=== PATIENT | female | born 1965 | race Caucasian/White ===

== ENCOUNTER 2017-05-22 18:02 | Inpatient (IN) | payer BC ==
--- NOTE | 2017-05-22 18:32 | Emergency Department Record ---
History of Present Illness - General Chief complaint: Weakness Stated complaint: WEAK/LOSING WEIGHT Time Seen by Provider: 05/22/17 18:30 Source: Patient Mode of Arrival: Ambulatory Limitations: No limitations - History of Present Illness Initial comments: The patient is here due to not feeling well for 2 months. She has been having nausea and a lack of appetite for months and now is having an increase in her loose stools. She has a hx of Crohns Dz and does see a GI specialist who is trying to get her on Stelera but has not been successful. Now she is having and increase in her chronic AP and has had a 50 lb weight loss. She denies any vomiting, fever, or dysuria. MD Complaint: Generalized weakness, Lack of energy Onset/Timin -: Month(s) Consistency: Constant Improves with: None Worsens with: None Context: Other - Related Data Home Medications Medication Instructions Recorded Confirmed Last Taken Budesonide [Uceris] 9 mg PO QAM 05/22/17 05/22/17 05/22/17 Allergies Allergy/AdvReac Type Severity Reaction Status Date / Time No Known Drug Allergies Allergy Verified 05/22/17 18:15 Travel Screening - Travel/Exposure Within Last 30 Days Have you traveled within the last 30 days?: No - Travel/Exposure Within Last Year Have you traveled outside the [place] in the last year?: No - Additonal Travel Details Have you been exposed to anyone with a communicable illness?: No - Travel Symptoms Symptom Screening: None Review of Systems Constitutional: Denies: Chills, Fever Eyes: Denies: Eye discharge ENT: Denies: Congestion Respiratory: Denies: Cough, Dyspnea Past Medical History - SOCIAL HISTORY Smoking Status: Current every day smoker Alcohol Use: None Drug Use: None - RESPIRATORY Hx Respiratory Disorders: No - CARDIOVASCULAR Hx Cardio Disorders: No - NEURO Hx Neuro Disorders: Yes Hx of Migraines: Yes - GI Hx GI Disorders: Yes Hx Abdominal Pain: Yes Hx Crohn's Disease: Yes Hx Nausea/Vomiting: Yes Hx Rectal Bleeding: Yes Hx of Polyps: Yes Comment:: [place].C. - Hx Genitourinary Disorders: No - ENDOCRINE Hx Endocrine Disorders: No - MUSCULOSKELETAL Hx Musculoskeletal Disorders: No - PSYCH Hx Psych Problems: No Comment:: "lots of stress" - HEMATOLOGY/ONCOLOGY Hx Hematology/Oncology Disorders: No Family Medical History Any Significant Family History?: Yes Hx Cancer: Father Hx Heart Disease: Mother Physical Exam - General General Appearance: Alert, Oriented x3, Cooperative, No acute distress - Head Head exam: Atraumatic, Normocephalic, Normal inspection - Eye Eye exam: Normal appearance, PERRL - ENT Throat exam: Normal inspection. negative: Tonsillar erythema, Tonsillar exudate - Neck Neck exam: Normal inspection, Full ROM. negative: Tenderness - Respiratory Respiratory exam: Normal lung sounds bilaterally. negative: Respiratory distress - Cardiovascular Cardiovascular Exam: Regular rate, Normal rhythm, Normal heart sounds - GI/Abdominal GI/Abdominal exam: Soft, Tenderness (There is diffuse tenderness in the lower abdomen bilaterally L>R.). negative: Distended, Rebound, Rigid - Extremities Extremities exam: Normal inspection, Full ROM, Normal capillary refill. negative: Tenderness Course Vital Signs 05/22/17 18:17 Temperature 98.1 F Pulse Rate 91 H Respiratory 20 Rate Blood Pressure 97/65 Pulse Ox 97 - Reevaluation(s) Reevaluation #1: The patient is doing a little better with the IVF's. She is refusing a CT scan of the abdomen but does agree to the plain films. I did discuss the case with Dr. Chandra and he would like the patient on IV Solumedrol and would like some plain xrays if the patient is refusing the CT. I did explain the need for the CT to the patient but she continues to refuse. She understands that she could have a severe infection and need for surgery and that by NOT doing the CT we cannot be held liable for NOT diagnosing those conditions. 05/22/17 20:55 05/22/17 21:01 Reevaluation #2: The patient is doing much better at this time. Her pain is much improved and the abdomen on exam is very soft with only very minimal tenderness in the lower abdomen. I did discuss the issues with the patient and did recommend hospital admission and she accepted. I then did discuss the case with Valeria (PRESCHOOL PROGRAM DIRECTOR) who is monotype keyboard operator for Dr. Joyner and she accepts the patient to the hospital. 05/22/17 21:47 Medical Decision Making - Data Complexity MDM Data: Labs Ordered and/or Reviewed, X-Ray Ordered and/or Reviewed - Lab Data Result diagrams: 05/22/17 18:25 05/22/17 18:25 - Radiology Data Radiology results: Report reviewed -: Radiology Exam Interpreted by Myself (AXR: No acute changes.) Disposition Disposition: Admit Clinical Impression: Crohn's colitis Qualifiers: Digestive disease complication type: without complication Qualified Code(s): K50.10 - Crohn's disease of large intestine without complications Disposition: Still a Patient at [facility] Decision to Admit: Admit from ER Decision to Admit Date: 05/22/17 Decision to Admit Time: 21:49 Accepting Physician: Anya Time Discussed w/Accepting Physician: 21:49 Condition: (2) Stable Forms: Patient Portal Access Time of Disposition: 21:49
[2017-05-22] MEDS ORDERED: ONDANSETRON HCL IV 4 MG/2 ML VIAL IV ONE (18:43)
[2017-05-22] MEDS ORDERED: 0.9 % SODIUM CHLORIDE 1,000 ML BAG IV ONE ×2 (18:43→19:50)
[2017-05-22] MEDS ORDERED: HYDROMORPHONE HCL 1 MG/ML CPJ IVP ONE (18:44)
[2017-05-22 18:52] LABS: HEMATOCRIT 34.9 % (35.0-47.0); HEMOGLOBIN 10.2 gm/dl (11.6-16.0); MEAN CELL VOLUME 70.8 fl (81-97); MEAN CORPUSCULAR HGB CONC 29.2 g/dl (32-36); MEAN PLATELET VOLUME 11.7 fl (7.4-10.4); PLATELET COUNT 420 K/uL (130-400); RED BLOOD COUNT 4.93 M/uL (3.80-5.40); RED CELL DISTRIBUTION WIDTH 16.9 % (11.5-14.5); WHITE BLOOD COUNT W/O DIFF 13.8 K/uL (4.2-12.2)
[2017-05-22 19:03] LABS: ALBUMIN 3.6 gm/dL (3.5-5.0); ALKALINE PHOSPHATASE 90 U/L (38-126); ALT/SGPT 17 U/L (9-52); ANION GAP 9.1 (7-16); AST/SGOT 12 U/L (14-36); BILIRUBIN,TOTAL 0.41 mg/dL (0.2-1.3); BLOOD UREA NITROGEN 8 mg/dL (7-17); CARBON DIOXIDE 29.9 mmol/L (22-30); CREATININE 0.7 mg/dL (0.52-1.04); EST GLOMERULAR FILTRATION RATE > 60 ml/min; GLUCOSE,RANDOM 107 mg/dL (70-110); LIPASE 29 U/L (23-300); TOTAL PROTEIN 7.6 gm/dL (6.3-8.2)
[2017-05-22 19:09] LABS: MEAN CORPUSCULAR HEMOGLOBIN 20.6 pg (27-33)
[2017-05-22 19:13] LABS: HYPOCHROMIA 3+; MICROCYTOSIS 1+
[2017-05-22] MEDS ORDERED: POTASSIUM CHLORIDE 20 MEQ TABLET PO ONE (19:35)
[2017-05-22 20:23] LABS: URINE APPEARANCE CLEAR; URINE BILIRUBIN SMALL (NEGATIVE); URINE BLOOD NEGATIVE (NEGATIVE); URINE COLOR YELLOW; URINE GLUCOSE (UA) NEGATIVE (NEGATIVE); URINE KETONE 15 mg/dL (NEGATIVE); URINE LEUKOCYTE ESTERASE NEGATIVE (NEGATIVE); URINE NITRITE NEGATIVE (NEGATIVE); URINE PROTEIN TRACE (NEGATIVE)
[2017-05-22] MEDS ORDERED: METHYLPREDNISOLONE PF 125MG/VIAL IVP ONE (20:49)
[2017-05-22] MEDS ORDERED: POTASSIUM CHLORIDE/D5-0.9%NACL 20 MEQ/1,000 ML BAG IV ONE (23:05)
[2017-05-22] MEDS: HYDROMORPHONE HCL 1 MG/ML CPJ IVP PRN (23:18)
[2017-05-22] MEDS: ONDANSETRON HCL IV 4 MG/2 ML VIAL IVP PRN (23:34)
[2017-05-23] MEDS: HYDROMORPHONE HCL 1 MG/ML CPJ IVP PRN ×5 (03:51→20:32)
[2017-05-23] MEDS: ONDANSETRON HCL IV 4 MG/2 ML VIAL IVP PRN ×3 (03:56→12:10)
[2017-05-23 06:21] LABS: BASO % 0.1 % (0-6); HEMATOCRIT 27.8 % (35.0-47.0); LYMPH % 8.3 % (16-45); MEAN CELL VOLUME 72.2 fl (81-97); MEAN CORPUSCULAR HGB CONC 28.8 g/dl (32-36); MEAN PLATELET VOLUME 11.4 fl (7.4-10.4); PLATELET COUNT 304 K/uL (130-400); RED BLOOD COUNT 3.85 M/uL (3.80-5.40); RED CELL DISTRIBUTION WIDTH 16.6 % (11.5-14.5); WHITE BLOOD COUNT W/O DIFF 7.8 K/uL (4.2-12.2)
[2017-05-23 06:30] LABS: ANION GAP 5.7 (7-16); BLOOD UREA NITROGEN 8 mg/dL (7-17); CARBON DIOXIDE 25.3 mmol/L (22-30); CREATININE 0.5 mg/dL (0.52-1.04); EST GLOMERULAR FILTRATION RATE > 60 ml/min; GLUCOSE,RANDOM 156 mg/dL (70-110)
[2017-05-23 07:04] LABS: MEAN CORPUSCULAR HEMOGLOBIN 20.7 pg (27-33)
[2017-05-23 07:07] LABS: ANISOCYTOSIS 1+; HYPOCHROMIA 3+; MICROCYTOSIS 2+; PLATELET ESTIMATE NORMAL (NORMAL)
[2017-05-23] MEDS: METHYLPREDNISOLONE PF 125MG/VIAL IVP SCH (11:01)
[2017-05-23] MEDS: BUDESONIDE 9 MG PO SCH (11:02)
[2017-05-23] MEDS: ENOXAPARIN 40 MG/0.4 ML SYR SQ SCH (11:02)
--- NOTE | 2017-05-23 11:33 | RADIOLOGY REPORT ---
EXAM: ABDOMEN, ACUTE SERIES HISTORY: ABDOMINAL PAIN. TECHNIQUE: Single PA view of the chest. Supine and upright views of the abdomen were performed. FINDINGS: Heart size is normal. Lung ash are clear. Nonspecific bowel gas pattern. There is increased stool in the descending colon. No evidence of free air. There is degenerative change of the lumbar spine. IMPRESSION: 1. NO ACUTE PULMONARY DISEASE PROCESS. 2. NONOBSTRUCTIVE BOWEL GAS PATTERN. NO EVIDENCE OF FREE AIR. JOB NUMBER: [id number] MTDD
[2017-05-23] MEDS ORDERED: POTASSIUM CHLORIDE/D5-0.9%NACL 20 MEQ/1,000 ML BAG IV ONE (16:32)
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
[2017-05-23] MEDS: SENNOSIDES/DOCUSATE SODIUM UD CAPSULE PO PRN (20:33)
[2017-05-24] MEDS: HYDROMORPHONE HCL 1 MG/ML CPJ IVP PRN ×7 (00:22→21:00)
[2017-05-24] MEDS: 0.9 % SODIUM CHLORIDE 1000ML 1,000 ML IV PRN ×2 (03:15→11:20)
[2017-05-24] MEDS: ONDANSETRON HCL IV 4 MG/2 ML VIAL IVP PRN (04:40)
[2017-05-24 06:24] LABS: BASO % 0.1 % (0-6); EOS % 0.7 % (0-6); GRAN % 65.4 % (47-80); HEMATOCRIT 28.2 % (35.0-47.0); HEMOGLOBIN 8.1 gm/dl (11.6-16.0); LYMPH % 23.2 % (16-45); MEAN CELL VOLUME 73.2 fl (81-97); MEAN CORPUSCULAR HGB CONC 28.7 g/dl (32-36); MEAN PLATELET VOLUME 11.4 fl (7.4-10.4); MONO % 10.6 % (0-9); PLATELET COUNT 340 K/uL (130-400); RED BLOOD COUNT 3.85 M/uL (3.80-5.40); RED CELL DISTRIBUTION WIDTH 16.6 % (11.5-14.5); WHITE BLOOD COUNT W/O DIFF 7.2 K/uL (4.2-12.2)
[2017-05-24 06:38] LABS: ALB/GLOB RATIO 0.9 (1.1-1.8); ALBUMIN 2.8 gm/dL (3.5-5.0); ALKALINE PHOSPHATASE 64 U/L (38-126); ALT/SGPT 19 U/L (9-52); ANION GAP 5.7 (7-16); AST/SGOT 8 U/L (14-36); BILIRUBIN,TOTAL 0.25 mg/dL (0.2-1.3); BLOOD UREA NITROGEN 6 mg/dL (7-17); CARBON DIOXIDE 29.3 mmol/L (22-30); CREATININE 0.7 mg/dL (0.52-1.04); EST GLOMERULAR FILTRATION RATE > 60 ml/min; GLUCOSE,RANDOM 88 mg/dL (70-110)
[2017-05-24] MEDS: BUDESONIDE 9 MG PO SCH ×2 (08:15→10:37)
--- NOTE | 2017-05-24 10:41 | Physician Progress Note ---
Subjective - Date Date of Physician Progress Note: 05/24/17 - Subjective Subjective Comment: Reports pain has somewhat improved with moving bowels but has anticipation concerns every time she heats. No further nausea, tolerated clear liquids this am. Is passing gas. Had small pebble-like BM last night. Continues to report anxiety regarding eating. Has an appetite and would eat a full meal but knows that as soon as she feels the urge to move bowels she has significant LLQ abdominal pain, stabbing in nature, hurts to bear down to move bowels. Is usually constipated, does have hx hemorrhoids. Yesterday's BM was hard, needed to bear down to pass stool, did have some blood streaked in stool. Pain was slightly better with that bowel movement but reports asks for pain medication prior to attempting to move bowels to treat impending pain Objective - Vital Signs Vital Signs: Vital Signs - Last 24 Hrs Temp Pulse Resp BP BP Pulse Ox 05/24/17 09:28 98.6 F 100/76 05/24/17 08:00 98.6 F 57 L 16 108/58 97 05/24/17 04:35 98.6 F 56 L 14 100/76 98 05/24/17 00:00 98.6 F 58 L 16 102/73 96 05/23/17 20:02 98.2 F 53 L 12 109/67 97 05/23/17 17:00 97.8 F 64 12 96/58 96 05/23/17 13:00 98.4 F 53 L 12 91/50 95 - General General Appearance: Alert, Oriented x3, Cooperative, Other (cachectic) Limitations: No limitations - Head Head exam: Atraumatic, Normocephalic, Normal inspection - Eye Eye exam: Normal appearance, PERRL - ENT ENT exam: Normal exam Throat exam: Normal inspection. negative: Tonsillar erythema, Tonsillar exudate - Neck Neck exam: Normal inspection, Full ROM. negative: Tenderness - Respiratory Respiratory exam: Normal lung sounds bilaterally. negative: Respiratory distress - Cardiovascular Cardiovascular Exam: Regular rate, Normal rhythm, Normal heart sounds Peripheral Pulses: 2+: Dorsalis Pedis (R), Dorsalis Pedis (L) - GI/Abdominal GI/Abdominal exam: Soft, Normal bowel sounds (decreased LLQ), Distended (mild), Tenderness (LLQ ). negative: Diminished bowel sounds, Rebound, Rigid - Rectal Rectal exam: Deferred - exam: Deferred - Extremities Extremities exam: Normal inspection, Full ROM, Normal capillary refill. negative: Tenderness - Back Back exam: Reports: Normal inspection, Full ROM. Denies: Muscle spasm, Rash noted, Tenderness - Neurological Neurological exam: Alert, Normal gait, Oriented X3, Reflexes normal - Psychiatric Psychiatric exam: Normal affect, Normal mood - Skin Skin exam: Dry, Intact, Normal color, Warm Assessment and Plan - Inpatient Certification Inpatient Certification: Admit to inpatient care: Based on my medical assessment, after consideration of patient's risk factors (age, co-morbidities and patient presenting symptoms and acuity), I expect that this patient will remain in the hospital greater than or equal to two midnights and that the services needed warrant inpatient care because: Patient Risk Factors: [anemic, significant weight loss in 2 months, abdominal pain, malnourishment] Estimated length of stay: [48-72 hours] The patient may reasonably be expected to be discharged or transferred to a hospital within 96 hours after admission to [facility]. Services needed: [IV hydration, pain management, IV steroids] Post hospital care (if known): [] I certify that my determination is in accordance with my understanding of Medicare requirements for reasonable and necessary inpatient services. 05/24/17 10:42 05/24/17 10:53 - Assessment and Plan (1) Crohn's colitis Current Visit: Yes Status: Acute Qualifiers: Digestive disease complication type: without complication Qualified Code(s) : K50.10 - Crohn's disease of large intestine without complications Base Code: K50.10 - CROHN'S DISEASE OF LARGE INTESTINE WITHOUT COMPLICATIONS Comment: 05/24/17- 51 y/o female with hx Crohn's admitted after 2 month history of abdominal pain, nausea, loose stools, poor appetite, 50lb weigh loss. ESR/ CRP significantly elevated in ED, WBC normal, Hgb 8.0. Denies blood in stool or emesis. Refused CT abdomen/pelvis. Acute abdominal series showed non- obstructive gas pattern. Well known to Dr. Chandra. Recently started on Uceris in February 2017, has been trying to get Stelara covered by insurance but unable. - pain with BM slightly improved, had small hard pebble-like movement yesterday - IV hydration - clear liquid diet, is tolerating - pain management with Dilaudid, pain improved - ZOfran for nausea, nausea improved - IV Solumedrol 40mg QD - Hgb 8.1 this am - Dietary consult - Protein and albumin low, previos normal readings likely due to hemoconcentration - will get magnesium and phosphorus today, concern with refeeding syndrome - may benefit from short term TPN if her intake does not improve - Dr Lashonda Arevalo is primary eradicator, she has been contacted today with message left for her to return call for further outpatient recommendations and concern with malnutrition (2) Malnutrition Current Visit: Yes Status: Acute Base Code: E46 - UNSPECIFIED PROTEIN- CALORIE MALNUTRITION Comment: 05/24/17- 51 y/o female with hx Crohn's admitted after 2 month history of abdominal pain, nausea, loose stools, poor appetite, 50lb weigh loss. ESR/CRP significantly elevated in ED, WBC normal, Hgb 8.0. Denies blood in stool or emesis. Refused CT abdomen/pelvis. Acute abdominal series showed non-obstructive gas pattern. Well known to Dr. Chandra. Recently started on Uceris in February 2017, has been trying to get Stelara covered by insurance but unable. - pain with BM slightly improved, had small hard pebble-like movement yesterday - IV hydration - clear liquid diet, is tolerating - pain management with Dilaudid, pain improved - ZOfran for nausea, nausea improved - IV Solumedrol 40mg QD - Hgb 8.1 this am - Dietary consult - Protein and albumin low, previos normal readings likely due to hemoconcentration - will get magnesium and phosphorus today, concern with refeeding syndrome - may benefit from short term TPN if her intake does not improve - Dr Lashonda Arevalo is primary eradicator, she has been contacted today with message left for her to return call for further outpatient recommendations and concern with malnutrition (3) DVT prophylaxis Current Visit: Yes Status: Acute Base Code: [id number] - Comment: 05/24/17- Lovenox 40mg QD, nursing to encourage frequent ambulation (4) Full code status Current Visit: Yes Status: Acute Base Code: Z78.9 - OTHER SPECIFIED HEALTH STATUS Comment: 05/24/17- will remain full code during this hospitalization Results - Labs Result Diagrams: 05/24/17 06:15 05/24/17 06:15 Labs Last 24 Hours: Laboratory Results - last 24 hr 05/24/17 05/24/17 05/24/17 06:15 06:15 06:15 WBC 7.2 RBC 3.85 Hgb 8.1 L Hct 28.2 L MCV 73.2 L MCH 21.0 L MCHC 28.7 L RDW 16.6 H Plt Count 340 MPV 11.4 H Gran % 65.4 Lymphocytes % 23.2 Monocytes % 10.6 H Eosinophils % 0.7 Basophils % 0.1 Sodium 142 Potassium 3.9 Chloride 107 Carbon Dioxide 29.3 Anion Gap 5.7 L BUN 6 L Creatinine 0.7 Estimated GFR > 60 Random Glucose 88 Calcium 8.5 Phosphorus 2.6 Magnesium Total Bilirubin 0.25 AST 8 L ALT 19 Alkaline Phosphatase 64 Total Protein 6.0 L Albumin 2.8 L Globulin 3.2 Albumin/Globulin Ratio 0.9 L Urine Magnesium 05/24/17 05/24/17 06:15 09:25 WBC RBC Hgb Hct MCV MCH MCHC RDW Plt Count MPV Gran % Lymphocytes % Monocytes % Eosinophils % Basophils % Sodium Potassium Chloride Carbon Dioxide Anion Gap BUN Creatinine Estimated GFR Random Glucose Calcium Phosphorus Magnesium 2.0 Total Bilirubin AST ALT Alkaline Phosphatase Total Protein Albumin Globulin Albumin/Globulin Ratio Urine Magnesium Cancelled DVT/PE Assessment - Risk for VTE Risk for VTE: No Risk Level: Low Risk Assessment Date: 05/23/17 Risk Assessment Time: 09:00 VTE Orders Placed or Will Be Placed: Yes - Active Medicaitons Current Medications: Current Medications Enoxaparin Sodium (Lovenox) 40 mg SQ DAILY [facility] Last Admin: 05/23/17 11:02 Dose: 40 mg Hydromorphone HCl (Dilaudid) 1 mg IVP Q4H PRN PRN Reason: Analgesia Last Admin: 05/24/17 08:14 Dose: 1 mg Sodium Chloride () 1,000 mls @ 125 mls/hr IV .Q8H PRN PRN Reason: LARGE VOLUME IV Last Admin: 05/24/17 03:15 Dose: 125 mls/hr Methylprednisolone Sodium Succinate (Solu-Medrol) 40 mg IVP DAILY [facility] Last Admin: 05/23/17 11:01 Dose: 40 mg Ondansetron HCl (Zofran) 4 mg IVP Q4H PRN PRN Reason: NAUSEA Last Admin: 05/24/17 04:40 Dose: 4 mg Patient Own Med: Budesonide (Uceris) 9 Mg 1 each PO DAILY [facility] Last Admin: 05/24/17 08:15 Dose: 1 each Senna/Docusate Sodium (Senna Plus) 2 each PO BID PRN PRN Reason: CONSTIPATION Last Admin: 05/23/17 20:33 Dose: 1 each AMI Plan - Labs Result Diagrams: 05/24/17 06:15 05/24/17 06:15
[2017-05-24] MEDS: METHYLPREDNISOLONE PF 125MG/VIAL IVP SCH (10:52)
[2017-05-24] MEDS: ENOXAPARIN 40 MG/0.4 ML SYR SQ SCH (10:55)
[2017-05-24] MEDS: SENNOSIDES/DOCUSATE SODIUM UD CAPSULE PO PRN (11:04)
[2017-05-25] MEDS: HYDROMORPHONE HCL 1 MG/ML CPJ IVP PRN ×6 (01:01→23:09)
[2017-05-25 06:16] LABS: HEMATOCRIT 27.9 % (35.0-47.0); MEAN CELL VOLUME 72.7 fl (81-97); MEAN CORPUSCULAR HEMOGLOBIN 20.8 pg (27-33); MEAN CORPUSCULAR HGB CONC 28.7 g/dl (32-36); MEAN PLATELET VOLUME 11.8 fl (7.4-10.4); PLATELET COUNT 317 K/uL (130-400); RED BLOOD COUNT 3.84 M/uL (3.80-5.40); RED CELL DISTRIBUTION WIDTH 16.7 % (11.5-14.5)
[2017-05-25 06:31] LABS: ALB/GLOB RATIO 0.9 (1.1-1.8); ALBUMIN 2.6 gm/dL (3.5-5.0); ALKALINE PHOSPHATASE 66 U/L (38-126); ALT/SGPT 21 U/L (9-52); ANION GAP 4.1 (7-16); AST/SGOT 8 U/L (14-36); BILIRUBIN,TOTAL 0.25 mg/dL (0.2-1.3); BLOOD UREA NITROGEN 4 mg/dL (7-17); CARBON DIOXIDE 28.9 mmol/L (22-30); CREATININE 0.6 mg/dL (0.52-1.04); EST GLOMERULAR FILTRATION RATE > 60 ml/min; GLUCOSE,RANDOM 93 mg/dL (70-110); TOTAL PROTEIN 5.6 gm/dL (6.3-8.2)
[2017-05-25 06:43] LABS: HYPOCHROMIA 1+; MICROCYTOSIS 2+
--- NOTE | 2017-05-25 07:42 | Physician Progress Note ---
Subjective - Date Date of Physician Progress Note: 05/25/17 - Subjective Subjective Comment: 05/25/17- Patient states she is feeling a little better today than when she came in. Says overall her abdominal pain has decreased. [place] like before it was painful to even touch her abdomen and couldn't bear down at all with BM due to the pain. She says today she has been able to valsalva and has passed some fecal material. She says it isn't all formed stool but has had a few smaller formed BM along with mucus but no obvious blood. She denies nausea/vomiting and actually feels very hungry. Still hesitant to eat due to anticipated pain in the LLQ when she has a BM. Denies fever, chills, fatigue, shortness of breath. Objective - Vital Signs Vital Signs: Vital Signs - Last 24 Hrs Temp Pulse Resp BP BP Pulse Ox 05/25/17 04:52 98.2 F 64 12 115/71 93 L 05/24/17 23:27 98.3 F 65 12 116/75 96 05/24/17 21:12 98.4 F 73 16 127/76 94 L 05/24/17 21:00 16 05/24/17 16:00 98.2 F 59 L 16 104/67 98 05/24/17 11:43 97.9 F 67 18 103/68 93 L 05/24/17 09:28 98.6 F 100/76 05/24/17 09:00 67 18 05/24/17 08:00 98.6 F 57 L 16 108/58 97 - General General Appearance: Alert, Oriented x3, Cooperative, Other (cachectic) Limitations: No limitations - Head Head exam: Atraumatic, Normocephalic, Normal inspection - Eye Eye exam: Normal appearance, PERRL - ENT ENT exam: Normal exam Throat exam: Normal inspection. negative: Tonsillar erythema, Tonsillar exudate - Neck Neck exam: Normal inspection, Full ROM. negative: Tenderness - Respiratory Respiratory exam: Normal lung sounds bilaterally. negative: Respiratory distress - Cardiovascular Cardiovascular Exam: Regular rate, Normal rhythm, Normal heart sounds Peripheral Pulses: 2+: Dorsalis Pedis (R), Dorsalis Pedis (L) - GI/Abdominal GI/Abdominal exam: Soft, Normal bowel sounds (decreased LLQ), Distended (mild), Tenderness (LLQ ). negative: Diminished bowel sounds, Rebound, Rigid - Rectal Rectal exam: Deferred - exam: Deferred - Extremities Extremities exam: Normal inspection, Full ROM, Normal capillary refill. negative: Tenderness - Back Back exam: Reports: Normal inspection, Full ROM. Denies: Muscle spasm, Rash noted, Tenderness - Neurological Neurological exam: Alert, Normal gait, Oriented X3, Reflexes normal - Psychiatric Psychiatric exam: Normal affect, Normal mood - Skin Skin exam: Dry, Intact, Normal color, Warm Assessment and Plan - Assessment and Plan (1) Crohn's colitis Current Visit: Yes Status: Acute Qualifiers: Digestive disease complication type: without complication Qualified Code(s) : K50.10 - Crohn's disease of large intestine without complications Base Code: K50.10 - CROHN'S DISEASE OF LARGE INTESTINE WITHOUT COMPLICATIONS Comment: 05/25/17- mild clinical improvement with decreased abdominal pain/ tenderness. CRP down from 22 at admission to 7.3 today following 3 days of solumedrol 40mg IV. HGB stable at 8.0. Katarina had spoken with Dr. Arevalo, patient' s primary GI doctor yesterday in regards to plan. She had recommended starting remicaid dosed at 10mg/kg due to patient's advanced disease. She recommends continued monitoring of patient in the hospital until next week when she receives a second dose of remicaid at 10mg/kg. -start remicaid infusion today. claritin and tylenol ordered prn for urticaria and fever - continue IV hydration -continue clear liquid diet. dietary consulted - pain management with Dilaudid - ZOfran for nausea - IV Solumedrol 40mg QD -repeat labs qam and continue to monitor lytes, crp, and albumin (2) DVT prophylaxis Current Visit: Yes Status: Acute Base Code: [id number] - Comment: 05/25/17- Lovenox 40mg QD, nursing to encourage frequent ambulation (3) Full code status Current Visit: Yes Status: Acute Base Code: Z78.9 - OTHER SPECIFIED HEALTH STATUS Comment: 05/25/17- will remain full code during this hospitalization Results - Labs Result Diagrams: 05/25/17 06:05 05/25/17 06:05 Labs Last 24 Hours: Laboratory Results - last 24 hr 05/24/17 05/24/17 05/24/17 06:15 06:15 09:25 WBC RBC Hgb Hct MCV MCH MCHC RDW Plt Count MPV Neutrophils % Eosinophils % Basophils % Lymphocytes Monocytes Hypochromasia Microcytosis Sodium Potassium Chloride Carbon Dioxide Anion Gap BUN Creatinine Estimated GFR Random Glucose Calcium Phosphorus 2.6 Magnesium 2.0 Total Bilirubin AST ALT Alkaline Phosphatase C-Reactive Protein Total Protein Albumin Globulin Albumin/Globulin Ratio Urine Magnesium Cancelled 05/25/17 05/25/17 05/25/17 06:05 06:05 06:05 WBC 5.0 RBC 3.84 Hgb 8.0 L Hct 27.9 L MCV 72.7 L MCH 20.8 L MCHC 28.7 L RDW 16.7 H Plt Count 317 MPV 11.8 H Neutrophils % 56.0 Eosinophils % Not Reportable Basophils % Not Reportable Lymphocytes 28.0 Monocytes 16.0 H Hypochromasia 1+ Microcytosis 2+ Sodium 142 Potassium 3.9 Chloride 109 H Carbon Dioxide 28.9 Anion Gap 4.1 L BUN 4 L Creatinine 0.6 Estimated GFR > 60 Random Glucose 93 Calcium 8.3 L Phosphorus Magnesium Total Bilirubin 0.25 AST 8 L ALT 21 Alkaline Phosphatase 66 C-Reactive Protein 7.3 H Total Protein 5.6 L Albumin 2.6 L Globulin 3.0 Albumin/Globulin Ratio 0.9 L Urine Magnesium DVT/PE Assessment - Risk for VTE Risk for VTE: No Risk Level: Low Risk Assessment Date: 05/23/17 Risk Assessment Time: 09:00 VTE Orders Placed or Will Be Placed: Yes - Active Medicaitons Current Medications: Current Medications Enoxaparin Sodium (Lovenox) 40 mg SQ DAILY [facility]S [facility] BEDS AT [facility] Last Admin: 05/24/17 10:55 Dose: 40 mg Hydromorphone HCl (Dilaudid) 1 mg IVP Q4H PRN PRN Reason: Analgesia Last Admin: 05/25/17 04:59 Dose: 1 mg Sodium Chloride () 1,000 mls @ 125 mls/hr IV .Q8H PRN PRN Reason: LARGE VOLUME IV Last Infusion: 05/24/17 19:30 Dose: Infused Methylprednisolone Sodium Succinate (Solu-Medrol) 40 mg IVP DAILY [facility]S [facility]CLUDE 234 BEDS AT [facility] Last Admin: 05/24/17 10:52 Dose: 40 mg Ondansetron HCl (Zofran) 4 mg IVP Q4H PRN PRN Reason: NAUSEA Last Admin: 05/24/17 04:40 Dose: 4 mg Patient Own Med: Budesonide (Uceris) 9 Mg 1 each PO DAILY [facility] Last Admin: 05/24/17 10:37 Dose: Not Given Senna/Docusate Sodium (Senna Plus) 2 each PO BID PRN PRN Reason: CONSTIPATION Last Admin: 05/24/17 11:04 Dose: 2 each AMI Plan - Labs Result Diagrams: 05/25/17 06:05 05/25/17 06:05
[2017-05-25] MEDS ORDERED: SODIUM CHLORIDE 0.9% IV ONE (10:30)
[2017-05-25] MEDS ORDERED: INFLIXIMAB IV ONE (10:30)
[2017-05-25] MEDS: METHYLPREDNISOLONE PF 125MG/VIAL IVP SCH (11:21)
[2017-05-25] MEDS: LORATADINE 10 MG TABLET PO PRN (11:21)
[2017-05-25] MEDS: ENOXAPARIN 40 MG/0.4 ML SYR SQ SCH (11:22)
[2017-05-25] MEDS: BUDESONIDE 9 MG PO SCH (11:22)
[2017-05-26] MEDS: 0.9 % SODIUM CHLORIDE 1000ML 1,000 ML IV PRN ×2 (00:34→09:51)
[2017-05-26] MEDS: ACETAMINOPHEN 500 MG TABLET PO PRN (00:38)
[2017-05-26] MEDS: HYDROMORPHONE HCL 1 MG/ML CPJ IVP PRN ×6 (03:10→23:49)
[2017-05-26 06:41] LABS: HEMATOCRIT 30.4 % (35.0-47.0); HEMOGLOBIN 8.7 gm/dl (11.6-16.0); MEAN CELL VOLUME 72.6 fl (81-97); MEAN CORPUSCULAR HGB CONC 28.6 g/dl (32-36); MEAN PLATELET VOLUME 12.2 fl (7.4-10.4); PLATELET COUNT 342 K/uL (130-400); RED BLOOD COUNT 4.19 M/uL (3.80-5.40); WHITE BLOOD COUNT W/O DIFF 8.5 K/uL (4.2-12.2)
[2017-05-26 06:52] LABS: MEAN CORPUSCULAR HEMOGLOBIN 20.7 pg (27-33)
[2017-05-26 06:59] LABS: ALB/GLOB RATIO 0.9 (1.1-1.8); ALKALINE PHOSPHATASE 77 U/L (38-126); ALT/SGPT 13 U/L (9-52); ANION GAP 5.3 (7-16); AST/SGOT 10 U/L (14-36); BILIRUBIN,TOTAL 0.23 mg/dL (0.2-1.3); BLOOD UREA NITROGEN 4 mg/dL (7-17); CARBON DIOXIDE 28.7 mmol/L (22-30); CREATININE 0.6 mg/dL (0.52-1.04); EST GLOMERULAR FILTRATION RATE > 60 ml/min; GLUCOSE,RANDOM 99 mg/dL (70-110); TOTAL PROTEIN 6.3 gm/dL (6.3-8.2)
[2017-05-26 07:17] LABS: HYPOCHROMIA 1+; MICROCYTOSIS 2+
--- NOTE | 2017-05-26 09:35 | Physician Progress Note ---
Subjective - Date Date of Physician Progress Note: 05/26/17 - Subjective Subjective Comment: 05/26/17- Patient states she is feeling a little better today. tolerated her first remicaid infusion well. She has had a good appetite today and not having nearly as much indigestion after eating. Has been able to tolerate about 25-50% of her meals and boost supplements which is an improvement. says her LLQ is kiln furniture saw tender but much improved from admission. Objective - Vital Signs Vital Signs: Vital Signs - Last 24 Hrs Temp Pulse Resp BP Pulse Ox 05/26/17 08:34 60 15 05/26/17 06:00 97.7 F 56 L 12 137/87 100 05/26/17 03:00 98.3 F 65 14 130/90 95 05/25/17 23:07 98.4 F 61 12 126/89 97 05/25/17 19:45 98.6 F 66 12 123/74 95 05/25/17 16:00 98.2 F 64 14 103/69 95 05/25/17 12:00 98.3 F 65 14 101/68 95 - General General Appearance: Alert, Oriented x3, Cooperative, Other (cachectic) Limitations: No limitations - Head Head exam: Atraumatic, Normocephalic, Normal inspection - Eye Eye exam: Normal appearance, PERRL - ENT ENT exam: Normal exam Throat exam: Normal inspection. negative: Tonsillar erythema, Tonsillar exudate - Neck Neck exam: Normal inspection, Full ROM. negative: Tenderness - Respiratory Respiratory exam: Normal lung sounds bilaterally. negative: Respiratory distress - Cardiovascular Cardiovascular Exam: Regular rate, Normal rhythm, Normal heart sounds Peripheral Pulses: 2+: Dorsalis Pedis (R), Dorsalis Pedis (L) - GI/Abdominal GI/Abdominal exam: Soft, Normal bowel sounds (decreased LLQ), Tenderness (LLQ ) . negative: Diminished bowel sounds, Distended, Rebound, Rigid - Rectal Rectal exam: Deferred - exam: Deferred - Extremities Extremities exam: Normal inspection, Full ROM, Normal capillary refill. negative: Tenderness - Back Back exam: Reports: Normal inspection, Full ROM. Denies: Muscle spasm, Rash noted, Tenderness - Neurological Neurological exam: Alert, Normal gait, Oriented X3, Reflexes normal - Psychiatric Psychiatric exam: Normal affect, Normal mood - Skin Skin exam: Dry, Intact, Normal color, Warm Assessment and Plan - Assessment and Plan (1) Crohn's colitis Current Visit: Yes Status: Acute Qualifiers: Digestive disease complication type: without complication Qualified Code(s) : K50.10 - Crohn's disease of large intestine without complications Base Code: K50.10 - CROHN'S DISEASE OF LARGE INTESTINE WITHOUT COMPLICATIONS Comment: 05/26/17- continued improvement with decreased abdominal pain/ tenderness. CRP down from 22 at admission to 7.0 today. HGB improved to 8.5. Patient tolerated first remicaid infusion well. Left message for Dr. Up to update her on patient's status. -repeat infusion next wednesday -continue clear liquid diet and advance as tolerating. dietary consulted - pain management with Dilaudid - ZOfran for nausea - continue IV Solumedrol 40mg QD -repeat labs qam and continue to monitor lytes, crp, and albumin (2) DVT prophylaxis Current Visit: Yes Status: Acute Base Code: [id number] - Comment: 05/26/17- Lovenox 40mg QD, nursing to encourage frequent ambulation (3) Full code status Current Visit: Yes Status: Acute Base Code: Z78.9 - OTHER SPECIFIED HEALTH STATUS Comment: 05/26/17- will remain full code during this hospitalization Results - Labs Result Diagrams: 05/26/17 06:18 05/26/17 06:18 Labs Last 24 Hours: Laboratory Results - last 24 hr 05/26/17 05/26/17 05/26/17 06:18 06:18 06:18 WBC 8.5 RBC 4.19 Hgb 8.7 L Hct 30.4 L MCV 72.6 L MCH 20.7 L MCHC 28.6 L RDW 17.0 H Plt Count 342 MPV 12.2 H Neutrophils % 61.0 Eosinophils % Not Reportable Basophils % Not Reportable Lymphocytes 30.0 Monocytes 9.0 Hypochromasia 1+ Microcytosis 2+ Sodium 142 Potassium 3.1 L Chloride 108 H Carbon Dioxide 28.7 Anion Gap 5.3 L BUN 4 L Creatinine 0.6 Estimated GFR > 60 Random Glucose 99 Calcium 8.4 L Total Bilirubin 0.23 AST 10 L ALT 13 Alkaline Phosphatase 77 C-Reactive Protein 7.0 H Total Protein 6.3 Albumin 3.0 L Globulin 3.3 Albumin/Globulin Ratio 0.9 L DVT/PE Assessment - Risk for VTE Risk for VTE: No Risk Level: Low Risk Assessment Date: 05/23/17 Risk Assessment Time: 09:00 VTE Orders Placed or Will Be Placed: Yes - Active Medicaitons Current Medications: Current Medications Acetaminophen (Tylenol 500mg Tab) 1,000 mg PO Q6H PRN PRN Reason: FEVER Last Admin: 05/26/17 00:38 Dose: 500 mg Enoxaparin Sodium (Lovenox) 40 mg SQ DAILY [facility] Last Admin: 05/25/17 11:22 Dose: 40 mg Hydromorphone HCl (Dilaudid) 1 mg IVP Q4H PRN PRN Reason: Analgesia Last Admin: 05/26/17 07:05 Dose: 1 mg Sodium Chloride () 1,000 mls @ 125 mls/hr IV .Q8H PRN PRN Reason: LARGE VOLUME IV Last Admin: 05/26/17 00:34 Dose: 125 mls/hr Infliximab 550 mg/ Sodium (Chloride) 250 mls @ 10 mls/hr IV NOW ONE Stop: 05/26/17 11:29 Last Admin: 05/25/17 11:23 Dose: 10 mls/hr Loratadine (Claritin) 10 mg PO DAILY PRN PRN Reason: URTICARIA Last Admin: 05/25/17 11:21 Dose: 10 mg Methylprednisolone Sodium Succinate (Solu-Medrol) 40 mg IVP DAILY [facility] Last Admin: 05/25/17 11:21 Dose: 40 mg Ondansetron HCl (Zofran) 4 mg IVP Q4H PRN PRN Reason: NAUSEA Last Admin: 05/24/17 04:40 Dose: 4 mg Patient Own Med: Budesonide (Uceris) 9 Mg 1 each PO DAILY [facility] Last Admin: 05/25/17 11:22 Dose: 1 each Senna/Docusate Sodium (Senna Plus) 2 each PO BID PRN PRN Reason: CONSTIPATION Last Admin: 05/24/17 11:04 Dose: 2 each AMI Plan - Labs Result Diagrams: 05/26/17 06:18 05/26/17 06:18
[2017-05-26] MEDS: METHYLPREDNISOLONE PF 125MG/VIAL IVP SCH (09:52)
[2017-05-26] MEDS: ENOXAPARIN 40 MG/0.4 ML SYR SQ SCH (09:54)
[2017-05-26] MEDS: BUDESONIDE 9 MG PO SCH (09:54)
[2017-05-26] MEDS: SENNOSIDES/DOCUSATE SODIUM UD CAPSULE PO PRN ×2 (11:12→23:48)
[2017-05-26] MEDS ORDERED: POTASSIUM CHLORIDE 20 MEQ TABLET PO ONE (12:12)
[2017-05-27] MEDS: HYDROMORPHONE HCL 1 MG/ML CPJ IVP PRN ×5 (03:57→22:35)
--- NOTE | 2017-05-27 06:40 | Physician Progress Note ---
Subjective - Date Date of Physician Progress Note: 05/27/17 - Subjective Subjective Comment: 05/27/17- Patient states she continues to feel a little better today. She says her stool is becoming slightly more formed and she says her pain with elimination is stable. She says her abdominal pain continues to improve as does her appetite. She was able to tolerate some of the boost supplement as well. Objective - Vital Signs Vital Signs: Vital Signs - Last 24 Hrs Temp Pulse Resp BP BP Pulse Ox 05/27/17 06:04 97.7 F 49 L 16 138/81 94 L 05/27/17 02:05 98.1 F 52 L 16 134/79 95 05/26/17 22:54 98.5 F 57 L 16 139/86 95 05/26/17 21:00 75 16 05/26/17 18:54 98.9 F 68 16 138/71 98 05/26/17 15:17 98.0 F 73 16 128/75 98 05/26/17 11:03 97.8 F 120/79 05/26/17 10:02 97.8 F 59 L 14 120/79 96 05/26/17 08:34 60 15 - General General Appearance: Alert, Oriented x3, Cooperative, Other (cachectic) Limitations: No limitations - Head Head exam: Atraumatic, Normocephalic, Normal inspection - Eye Eye exam: Normal appearance, PERRL - ENT ENT exam: Normal exam Throat exam: Normal inspection. negative: Tonsillar erythema, Tonsillar exudate - Neck Neck exam: Normal inspection, Full ROM. negative: Tenderness - Respiratory Respiratory exam: Normal lung sounds bilaterally. negative: Respiratory distress - Cardiovascular Cardiovascular Exam: Regular rate, Normal rhythm, Normal heart sounds Peripheral Pulses: 2+: Dorsalis Pedis (R), Dorsalis Pedis (L) - GI/Abdominal GI/Abdominal exam: Soft, Normal bowel sounds (decreased LLQ), Tenderness (LLQ ) . negative: Diminished bowel sounds, Distended, Rebound, Rigid - Rectal Rectal exam: Deferred - exam: Deferred - Extremities Extremities exam: Normal inspection, Full ROM, Normal capillary refill. negative: Tenderness - Back Back exam: Reports: Normal inspection, Full ROM. Denies: Muscle spasm, Rash noted, Tenderness - Neurological Neurological exam: Alert, Normal gait, Oriented X3, Reflexes normal - Psychiatric Psychiatric exam: Normal affect, Normal mood - Skin Skin exam: Dry, Intact, Normal color, Warm Assessment and Plan - Assessment and Plan (1) Crohn's colitis Current Visit: Yes Status: Acute Qualifiers: Digestive disease complication type: without complication Qualified Code(s) : K50.10 - Crohn's disease of large intestine without complications Base Code: K50.10 - CROHN'S DISEASE OF LARGE INTESTINE WITHOUT COMPLICATIONS Comment: 05/27/17- continued improvement with decreased abdominal pain/ tenderness. CRP down from 22 at admission to 4.3 and ESR down to 33 today. HGB stable at 8.5. Patient tolerated first remicaid infusion well. spoke with Dr. Up who recommends continued admission for monitoring until next remicaid infusion due to severity of patient's crohn's flare. We also discussed the possibility of trying to get her set up for an outpatient infusion, however, were unable to obtain prior auth to get her scheduled at the infusion clinic, nor do they have available appointments next week. -repeat infusion next wednesday -continue to advance diet as tolerating. dietary consulted - pain management with Dilaudid - ZOfran for nausea - continue IV Solumedrol 40mg QD -repeat labs qam and continue to monitor lytes, crp, and albumin (2) DVT prophylaxis Current Visit: Yes Status: Acute Base Code: [id number] - Comment: 05/27/17- Lovenox 40mg QD, nursing to encourage frequent ambulation (3) Full code status Current Visit: Yes Status: Acute Base Code: Z78.9 - OTHER SPECIFIED HEALTH STATUS Comment: 05/27/17- will remain full code during this hospitalization Results - Labs Result Diagrams: 05/27/17 06:18 05/27/17 06:18 Labs Last 24 Hours: Laboratory Results - last 24 hr 05/26/17 05/26/17 05/26/17 06:18 06:18 06:18 WBC 8.5 RBC 4.19 Hgb 8.7 L Hct 30.4 L MCV 72.6 L MCH 20.7 L MCHC 28.6 L RDW 17.0 H Plt Count 342 MPV 12.2 H Neutrophils % 61.0 Eosinophils % Not Reportable Basophils % Not Reportable Lymphocytes 30.0 Monocytes 9.0 Hypochromasia 1+ Microcytosis 2+ Sodium 142 Potassium 3.1 L Chloride 108 H Carbon Dioxide 28.7 Anion Gap 5.3 L BUN 4 L Creatinine 0.6 Estimated GFR > 60 Random Glucose 99 Calcium 8.4 L Total Bilirubin 0.23 AST 10 L ALT 13 Alkaline Phosphatase 77 C-Reactive Protein 7.0 H Total Protein 6.3 Albumin 3.0 L Globulin 3.3 Albumin/Globulin Ratio 0.9 L DVT/PE Assessment - Risk for VTE Risk for VTE: No Risk Level: Low Risk Assessment Date: 05/23/17 Risk Assessment Time: 09:00 VTE Orders Placed or Will Be Placed: Yes - Active Medicaitons Current Medications: Current Medications Acetaminophen (Tylenol 500mg Tab) 1,000 mg PO Q6H PRN PRN Reason: FEVER Last Admin: 05/26/17 00:38 Dose: 500 mg Enoxaparin Sodium (Lovenox) 40 mg SQ DAILY [facility] Last Admin: 05/26/17 09:54 Dose: 40 mg Hydromorphone HCl (Dilaudid) 1 mg IVP Q4H PRN PRN Reason: Analgesia Last Admin: 05/27/17 03:57 Dose: 1 mg Loratadine (Claritin) 10 mg PO DAILY PRN PRN Reason: URTICARIA Last Admin: 05/25/17 11:21 Dose: 10 mg Methylprednisolone Sodium Succinate (Solu-Medrol) 40 mg IVP DAILY [facility] Last Admin: 05/26/17 09:52 Dose: 40 mg Ondansetron HCl (Zofran) 4 mg IVP Q4H PRN PRN Reason: NAUSEA Last Admin: 05/24/17 04:40 Dose: 4 mg Patient Own Med: Budesonide (Uceris) 9 Mg 1 each PO DAILY [facility] Last Admin: 05/26/17 09:54 Dose: 1 each Senna/Docusate Sodium (Senna Plus) 2 each PO BID PRN PRN Reason: CONSTIPATION Last Admin: 05/26/17 23:48 Dose: 2 each AMI Plan - Labs Result Diagrams: 05/27/17 06:18 05/27/17 06:18
[2017-05-27 06:47] LABS: HEMATOCRIT 28.5 % (35.0-47.0); HEMOGLOBIN 8.4 gm/dl (11.6-16.0); MEAN CELL VOLUME 72.3 fl (81-97); MEAN CORPUSCULAR HEMOGLOBIN 21.3 pg (27-33); MEAN CORPUSCULAR HGB CONC 29.5 g/dl (32-36); MEAN PLATELET VOLUME 12.2 fl (7.4-10.4); PLATELET COUNT 277 K/uL (130-400); RED BLOOD COUNT 3.94 M/uL (3.80-5.40); RED CELL DISTRIBUTION WIDTH 16.8 % (11.5-14.5); WHITE BLOOD COUNT W/O DIFF 6.8 K/uL (4.2-12.2)
[2017-05-27 07:01] LABS: ALB/GLOB RATIO 0.8 (1.1-1.8); ALBUMIN 2.7 gm/dL (3.5-5.0); ALKALINE PHOSPHATASE 78 U/L (38-126); ALT/SGPT 22 U/L (9-52); ANION GAP 6.6 (7-16); AST/SGOT 10 U/L (14-36); BILIRUBIN,TOTAL 0.16 mg/dL (0.2-1.3); BLOOD UREA NITROGEN 6 mg/dL (7-17); CARBON DIOXIDE 31.4 mmol/L (22-30); CREATININE 0.6 mg/dL (0.52-1.04); EST GLOMERULAR FILTRATION RATE > 60 ml/min; GLUCOSE,RANDOM 109 mg/dL (70-110); TOTAL PROTEIN 5.9 gm/dL (6.3-8.2)
[2017-05-27 07:12] LABS: HYPOCHROMIA 1+; PLATELET ESTIMATE NORMAL (NORMAL)
[2017-05-27 07:45] LABS: ERYTHROCYTE SEDIMENTATION RATE 33 mm/hr (0-30)
[2017-05-27] MEDS: BUDESONIDE 9 MG PO SCH (09:24)
[2017-05-27] MEDS: METHYLPREDNISOLONE PF 125MG/VIAL IVP SCH (09:25)
[2017-05-27] MEDS: ENOXAPARIN 40 MG/0.4 ML SYR SQ SCH (09:26)
[2017-05-27] MEDS: SENNOSIDES/DOCUSATE SODIUM UD CAPSULE PO PRN (12:31)
[2017-05-27] MEDS: TEMAZEPAM 15 MG CAPSULE PO PRN (22:36)
[2017-05-28] MEDS: HYDROMORPHONE HCL 1 MG/ML CPJ IVP PRN ×4 (02:42→18:12)
[2017-05-28 06:52] LABS: HEMOGLOBIN 8.7 gm/dl (11.6-16.0); MEAN CELL VOLUME 71.9 fl (81-97); MEAN PLATELET VOLUME 11.8 fl (7.4-10.4); PLATELET COUNT 307 K/uL (130-400); RED BLOOD COUNT 4.17 M/uL (3.80-5.40); RED CELL DISTRIBUTION WIDTH 16.9 % (11.5-14.5); WHITE BLOOD COUNT W/O DIFF 9.2 K/uL (4.2-12.2)
[2017-05-28 06:57] LABS: MEAN CORPUSCULAR HEMOGLOBIN 20.8 pg (27-33)
[2017-05-28 07:08] LABS: ALB/GLOB RATIO 0.9 (1.1-1.8); ALBUMIN 2.8 gm/dL (3.5-5.0); ALKALINE PHOSPHATASE 71 U/L (38-126); ALT/SGPT 22 U/L (9-52); ANION GAP 6.3 (7-16); AST/SGOT 12 U/L (14-36); BILIRUBIN,TOTAL 0.17 mg/dL (0.2-1.3); BLOOD UREA NITROGEN 7 mg/dL (7-17); CARBON DIOXIDE 30.7 mmol/L (22-30); CREATININE 0.6 mg/dL (0.52-1.04); EST GLOMERULAR FILTRATION RATE > 60 ml/min; GLUCOSE,RANDOM 99 mg/dL (70-110)
--- NOTE | 2017-05-28 07:14 | Physician Progress Note ---
Subjective - Date Date of Physician Progress Note: 05/28/17 - Subjective Subjective Comment: 05/28/19- Patient states she did continue to pass more formed stool through the night. She said she continues to have about the same baseline pain with passing stool. Overall, pain is still much better than when she came in. She is still eating well without nausea. says the dilaudid has been controlling her pain but is open to trial of oral medication as the pain has become better since admission. Objective - Vital Signs Vital Signs: Vital Signs - Last 24 Hrs Temp Pulse Resp BP BP Pulse Ox 05/28/17 04:00 98.3 F 49 L 18 136/77 98 05/27/17 23:56 98.0 F 49 L 16 132/75 94 L 05/27/17 21:00 70 15 05/27/17 20:00 98.3 F 59 L 18 136/77 96 05/27/17 15:00 99.0 F 59 L 18 136/74 96 05/27/17 11:00 97.6 F 61 16 128/77 92 L 05/27/17 08:16 16 - General General Appearance: Alert, Oriented x3, Cooperative, Other (cachectic) Limitations: No limitations - Head Head exam: Atraumatic, Normocephalic, Normal inspection - Eye Eye exam: Normal appearance, PERRL - ENT ENT exam: Normal exam Throat exam: Normal inspection. negative: Tonsillar erythema, Tonsillar exudate - Neck Neck exam: Normal inspection, Full ROM. negative: Tenderness - Respiratory Respiratory exam: Normal lung sounds bilaterally. negative: Respiratory distress - Cardiovascular Cardiovascular Exam: Regular rate, Normal rhythm, Normal heart sounds Peripheral Pulses: 2+: Dorsalis Pedis (R), Dorsalis Pedis (L) - GI/Abdominal GI/Abdominal exam: Soft (belly is very soft), Normal bowel sounds, Tenderness ( LLQ ). negative: Diminished bowel sounds, Distended, Rebound, Rigid - Rectal Rectal exam: Deferred - exam: Deferred - Extremities Extremities exam: Normal inspection, Full ROM, Normal capillary refill. negative: Tenderness - Back Back exam: Reports: Normal inspection, Full ROM. Denies: Muscle spasm, Rash noted, Tenderness - Neurological Neurological exam: Alert, Normal gait, Oriented X3, Reflexes normal - Psychiatric Psychiatric exam: Normal affect, Normal mood - Skin Skin exam: Dry, Intact, Normal color, Warm Assessment and Plan - Assessment and Plan (1) Crohn's colitis Current Visit: Yes Status: Acute Qualifiers: Digestive disease complication type: without complication Qualified Code(s) : K50.10 - Crohn's disease of large intestine without complications Base Code: K50.10 - CROHN'S DISEASE OF LARGE INTESTINE WITHOUT COMPLICATIONS Comment: 05/28/17- continued improvement with decreased abdominal pain/ tenderness. CRP down from 22 at admission to 2.4 and ESR down to 33 today. HGB stable at 8.7. Patient tolerated first remicaid infusion well. spoke with Dr. Up who recommends continued admission for monitoring until next remicaid infusion due to severity of patient's crohn's flare. We also discussed the possibility of trying to get her set up for an outpatient infusion, however, were unable to obtain prior auth to get her scheduled at the infusion clinic, nor do they have available appointments next week. -repeat infusion next wednesday -continue to advance diet as tolerating. dietary consulted - pain management with Dilaudid for severe pain. will try oxycodone 7.5mg po q6H for moderate pain and tramadol 50mg po q6H for mild pain. - ZOfran for nausea -transition to oral prednisone 40mg daily. Dr. Up would like her on this until she sees her as outpatient. would like patient sent home with prednisnoe 10mg #120 tablets 1 refill and she will start patient on the taper as outpatient. -repeat labs qam and continue to monitor lytes, crp, and albumin (2) DVT prophylaxis Current Visit: Yes Status: Acute Base Code: [id number] - Comment: 05/28/17- Lovenox 40mg QD, nursing to encourage frequent ambulation (3) Full code status Current Visit: Yes Status: Acute Base Code: Z78.9 - OTHER SPECIFIED HEALTH STATUS Comment: 05/28/17- will remain full code during this hospitalization Results - Labs Result Diagrams: 05/28/17 06:42 05/28/17 06:42 Labs Last 24 Hours: Laboratory Results - last 24 hr 05/27/17 05/28/17 05/28/17 06:18 06:42 06:42 WBC 9.2 RBC 4.17 Hgb 8.7 L Hct 30.0 L MCV 71.9 L MCH 20.8 L MCHC 29.0 L RDW 16.9 H Plt Count 307 MPV 11.8 H Neutrophils % 68.0 Band Neutrophils % 2.0 Eosinophils % Not Reportable Basophils % Not Reportable Lymphocytes 25.0 Monocytes 4.0 Platelet Estimate Normal Hypochromasia 1+ ESR 33 H Eosinophil Count 1.0 Sodium 143 Potassium 3.0 L Chloride 106 Carbon Dioxide 30.7 H Anion Gap 6.3 L BUN 7 Creatinine 0.6 Estimated GFR > 60 Random Glucose 99 Calcium 8.4 L Total Bilirubin 0.17 L AST 12 L ALT 22 Alkaline Phosphatase 71 Total Protein 6.0 L Albumin 2.8 L Globulin 3.2 Albumin/Globulin Ratio 0.9 L DVT/PE Assessment - Risk for VTE Risk for VTE: No Risk Level: Low Risk Assessment Date: 05/23/17 Risk Assessment Time: 09:00 VTE Orders Placed or Will Be Placed: Yes - Active Medicaitons Current Medications: Current Medications Acetaminophen (Tylenol 500mg Tab) 1,000 mg PO Q6H PRN PRN Reason: FEVER Last Admin: 05/26/17 00:38 Dose: 500 mg Enoxaparin Sodium (Lovenox) 40 mg SQ DAILY [facility] Last Admin: 05/27/17 09:26 Dose: 40 mg Hydromorphone HCl (Dilaudid) 1 mg IVP Q4H PRN PRN Reason: Analgesia Last Admin: 05/28/17 06:42 Dose: 1 mg Loratadine (Claritin) 10 mg PO DAILY PRN PRN Reason: URTICARIA Last Admin: 05/25/17 11:21 Dose: 10 mg Methylprednisolone Sodium Succinate (Solu-Medrol) 40 mg IVP DAILY [facility] Last Admin: 05/27/17 09:25 Dose: 40 mg Ondansetron HCl (Zofran) 4 mg IVP Q4H PRN PRN Reason: NAUSEA Last Admin: 05/24/17 04:40 Dose: 4 mg Patient Own Med: Budesonide (Uceris) 9 Mg 1 each PO DAILY [facility] Last Admin: 05/27/17 09:24 Dose: 1 each Senna/Docusate Sodium (Senna Plus) 2 each PO BID PRN PRN Reason: CONSTIPATION Last Admin: 05/27/17 12:31 Dose: 1 each Temazepam (Restoril) 15 mg PO QHS PRN PRN Reason: INSOMNIA Last Admin: 05/27/17 22:36 Dose: 15 mg AMI Plan - Labs Result Diagrams: 05/28/17 06:42 05/28/17 06:42
[2017-05-28 09:04] LABS: ERYTHROCYTE SEDIMENTATION RATE 33 mm/hr (0-30)
[2017-05-28] MEDS: BUDESONIDE 9 MG PO SCH (10:06)
[2017-05-28] MEDS: ENOXAPARIN 40 MG/0.4 ML SYR SQ SCH (10:06)
[2017-05-28] MEDS: METHYLPREDNISOLONE PF 125MG/VIAL IVP SCH (10:07)
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
--- NOTE | 2017-05-28 13:42 | Occupational Therapy Tx Note ---
Occupational Therapy Tx Note - Treatment Note Occupational Therapy Treatment Note: Detail (Pt resting in bed. Provided red and green theraband and red theraputty along with written exercises for shoulders, elbows, wrists and hands. Pt reports she will be able to complete on her own and does not need instructions currently. Will have OT recheck on Wednesday in case of any questions.) Occupational Therapy Problem List: Detail (1. Sheldon UE weakness/decreased endurance) Occupational Therapy Goals: 1. Pt will demonstrate Ind with UE HEP for strengthening/endurance. Occupational Therapy Plan: OT for UE strengthening/endurance training.
[2017-05-28] MEDS: OXYCODONE HCL 5 MG TABLET PO PRN (15:17)
--- NOTE | 2017-05-28 16:13 | Physical Therapy Tx Note ---
Physical Therapy Tx Note - Treatment Note Tolerated: Fair Total Time Spent With Patient: 10 Physical Therapy Tx Note: Detail (The patient was standing when PT arrived. The patient reported she was trying a position that was not painful. The patient was instructed in a HEP of LE strengthening exercises including: ankle pumps, hip adductor squeezes, SLR, red T-band hip abduction ,hamstring curls, LAQ . The patient understood exercises but did not demonstrate them due to increased abdominal pain. The patient is to complete HEP independently.) Physical Therapy Problem List: Detail (1) Abdominal pain 2) Decreased hip strength 3) Decreased ability to complete physical activity due to pain complaints) Physical Therapy Goals: Instruct the patient in LE strengthening exercises. The patient will be independent with HEP. Physical Therapy Plan: Will monitor patient's HEP.
[2017-05-28] MEDS: SENNOSIDES/DOCUSATE SODIUM UD CAPSULE PO PRN (20:31)
[2017-05-28] MEDS: ACETAMINOPHEN 500 MG TABLET PO PRN (20:40)
[2017-05-28] MEDS: TRAMADOL HCL 50 MG TABLET PO PRN (22:08)
[2017-05-28] MEDS: TEMAZEPAM 15 MG CAPSULE PO PRN (22:08)
[2017-05-29] MEDS: HYDROMORPHONE HCL 1 MG/ML CPJ IVP PRN ×3 (03:33→14:37)
[2017-05-29 06:22] LABS: HEMATOCRIT 29.3 % (35.0-47.0); HEMOGLOBIN 8.6 gm/dl (11.6-16.0); MEAN CELL VOLUME 72.3 fl (81-97); MEAN CORPUSCULAR HEMOGLOBIN 21.2 pg (27-33); MEAN CORPUSCULAR HGB CONC 29.4 g/dl (32-36); MEAN PLATELET VOLUME 11.9 fl (7.4-10.4); PLATELET COUNT 302 K/uL (130-400); RED BLOOD COUNT 4.05 M/uL (3.80-5.40); RED CELL DISTRIBUTION WIDTH 17.2 % (11.5-14.5); WHITE BLOOD COUNT W/O DIFF 8.3 K/uL (4.2-12.2)
[2017-05-29 06:31] LABS: ALB/GLOB RATIO 0.9 (1.1-1.8); ALBUMIN 2.9 gm/dL (3.5-5.0); ALKALINE PHOSPHATASE 77 U/L (38-126); ALT/SGPT 16 U/L (9-52); ANION GAP 6.8 (7-16); AST/SGOT 12 U/L (14-36); BILIRUBIN,TOTAL 0.26 mg/dL (0.2-1.3); BLOOD UREA NITROGEN 11 mg/dL (7-17); CARBON DIOXIDE 31.2 mmol/L (22-30); CREATININE 0.6 mg/dL (0.52-1.04); EST GLOMERULAR FILTRATION RATE > 60 ml/min; GLUCOSE,RANDOM 99 mg/dL (70-110); TOTAL PROTEIN 6.3 gm/dL (6.3-8.2)
[2017-05-29 06:57] LABS: HYPOCHROMIA 1+; MICROCYTOSIS 2+
[2017-05-29 07:02] LABS: ERYTHROCYTE SEDIMENTATION RATE 38 mm/hr (0-30)
[2017-05-29] MEDS: PREDNISONE 20 MG TAB PO SCH (08:31)
[2017-05-29] MEDS: POTASSIUM CHLORIDE 20 MEQ TABLET PO SCH (10:07)
[2017-05-29] MEDS: ENOXAPARIN 40 MG/0.4 ML SYR SQ SCH (10:07)
[2017-05-29] MEDS: BUDESONIDE 9 MG PO SCH (10:09)
[2017-05-29] MEDS: SENNOSIDES/DOCUSATE SODIUM UD CAPSULE PO PRN (10:18)
[2017-05-29] MEDS: TRAMADOL HCL 50 MG TABLET PO PRN ×3 (10:18→22:36)
--- NOTE | 2017-05-29 11:42 | Physician Progress Note ---
Subjective - Date Date of Physician Progress Note: 05/29/17 - Subjective Subjective Comment: 05/29/17- Patient states she is feeling about the same as yesterday. Has not had a bowel movement yet today and states that she feels some of her typical abdominal cramping that she has prior to having a BM. No nausea/vomiting. Objective - Vital Signs Vital Signs: Vital Signs - Last 24 Hrs Temp Pulse Resp BP BP Pulse Ox 05/29/17 09:00 18 05/29/17 08:00 97.8 F 54 L 18 129/72 98 05/29/17 04:00 98.8 F 52 L 18 136/82 96 05/28/17 21:00 70 15 05/28/17 20:00 98.8 F 59 L 18 126/78 96 05/28/17 16:00 99.1 F 58 L 16 126/71 93 L 05/28/17 12:00 98.9 F 60 16 120/68 95 - General General Appearance: Alert, Oriented x3, Cooperative, Other (cachectic) Limitations: No limitations - Head Head exam: Atraumatic, Normocephalic, Normal inspection - Eye Eye exam: Normal appearance, PERRL - ENT ENT exam: Normal exam Throat exam: Normal inspection. negative: Tonsillar erythema, Tonsillar exudate - Neck Neck exam: Normal inspection, Full ROM. negative: Tenderness - Respiratory Respiratory exam: Normal lung sounds bilaterally. negative: Respiratory distress - Cardiovascular Cardiovascular Exam: Regular rate, Normal rhythm, Normal heart sounds Peripheral Pulses: 2+: Dorsalis Pedis (R), Dorsalis Pedis (L) - GI/Abdominal GI/Abdominal exam: Soft (belly is very soft), Normal bowel sounds, Tenderness ( LLQ ). negative: Diminished bowel sounds, Distended, Rebound, Rigid - Rectal Rectal exam: Deferred - exam: Deferred - Extremities Extremities exam: Normal inspection, Full ROM, Normal capillary refill. negative: Tenderness - Back Back exam: Reports: Normal inspection, Full ROM. Denies: Muscle spasm, Rash noted, Tenderness - Neurological Neurological exam: Alert, Normal gait, Oriented X3, Reflexes normal - Psychiatric Psychiatric exam: Normal affect, Normal mood - Skin Skin exam: Dry, Intact, Normal color, Warm Assessment and Plan - Assessment and Plan (1) Crohn's colitis Current Visit: Yes Status: Acute Qualifiers: Digestive disease complication type: without complication Qualified Code(s) : K50.10 - Crohn's disease of large intestine without complications Base Code: K50.10 - CROHN'S DISEASE OF LARGE INTESTINE WITHOUT COMPLICATIONS Comment: 05/29/17- continues to ahve some abdominal cramping prior to BM but overall, pain improved from admission. CRP down from 22 at admission to 2.8 and ESR down to 38 today. HGB stable at 8.6. Patient tolerated first remicaid infusion well. spoke with Dr. Up who recommends continued admission for monitoring until next remicaid infusion due to severity of patient's crohn's flare. We also discussed the possibility of trying to get her set up for an outpatient infusion, however, were unable to obtain prior auth to get her scheduled at the infusion clinic, nor do they have available appointments next week. -repeat infusion next wednesday -continue to advance diet as tolerating. dietary consulted - pain management with Dilaudid for severe pain. will try oxycodone 7.5mg po q6H for moderate pain and tramadol 50mg po q6H for mild pain. - ZOfran for nausea -continue on oral prednisone 40mg daily. Dr. Up would like her on this until she sees her as outpatient. would like patient sent home with prednisnoe 10mg # 120 tablets 1 refill and she will start patient on the taper as outpatient. -repeat labs qam and continue to monitor lytes, crp, and albumin (2) DVT prophylaxis Current Visit: Yes Status: Acute Base Code: [id number] - Comment: 05/29/17- Lovenox 40mg QD, nursing to encourage frequent ambulation (3) Full code status Current Visit: Yes Status: Acute Base Code: Z78.9 - OTHER SPECIFIED HEALTH STATUS Comment: 05/29/17- will remain full code during this hospitalization Results - Labs Result Diagrams: 05/29/17 06:05 05/29/17 06:05 Labs Last 24 Hours: Laboratory Results - last 24 hr 05/29/17 05/29/17 05/29/17 06:05 06:05 06:05 WBC 8.3 RBC 4.05 Hgb 8.6 L Hct 29.3 L MCV 72.3 L MCH 21.2 L MCHC 29.4 L RDW 17.2 H Plt Count 302 MPV 11.9 H Neutrophils % 49.0 Eosinophils % Not Reportable Basophils % Not Reportable Lymphocytes 42.0 Monocytes 9.0 Hypochromasia 1+ Microcytosis 2+ ESR 38 H Sodium 142 Potassium 3.1 L Chloride 104 Carbon Dioxide 31.2 H Anion Gap 6.8 L BUN 11 Creatinine 0.6 Estimated GFR > 60 Random Glucose 99 Calcium 8.8 Total Bilirubin 0.26 AST 12 L ALT 16 Alkaline Phosphatase 77 C-Reactive Protein 2.8 H Total Protein 6.3 Albumin 2.9 L Globulin 3.4 Albumin/Globulin Ratio 0.9 L DVT/PE Assessment - Risk for VTE Risk for VTE: No Risk Level: Low Risk Assessment Date: 05/23/17 Risk Assessment Time: 09:00 VTE Orders Placed or Will Be Placed: Yes - Active Medicaitons Current Medications: Current Medications Acetaminophen (Tylenol 500mg Tab) 1,000 mg PO Q6H PRN PRN Reason: FEVER Last Admin: 05/28/17 20:40 Dose: 500 mg Enoxaparin Sodium (Lovenox) 40 mg SQ DAILY [facility] Last Admin: 05/29/17 10:07 Dose: 40 mg Hydromorphone HCl (Dilaudid) 1 mg IVP Q4H PRN PRN Reason: Pain - Severe (8-10) Last Admin: 05/29/17 08:36 Dose: 1 mg Loratadine (Claritin) 10 mg PO DAILY PRN PRN Reason: URTICARIA Last Admin: 05/25/17 11:21 Dose: 10 mg Ondansetron HCl (Zofran) 4 mg IVP Q4H PRN PRN Reason: NAUSEA Last Admin: 05/24/17 04:40 Dose: 4 mg Oxycodone HCl (Oxy Ir) 7.5 mg PO Q4H PRN PRN Reason: Pain - Moderate (5-7) Last Admin: 05/28/17 15:17 Dose: 7.5 mg Patient Own Med: Budesonide (Uceris) 9 Mg 1 each PO DAILY [facility] Last Admin: 05/29/17 10:09 Dose: 1 each Potassium Chloride (Klor-Con) 20 meq PO DAILY [facility] Last Admin: 05/29/17 10:07 Dose: 20 meq [facility]one ([facility]one 20mg) [facility] Last Admin: 05/29/17 08:31 Dose: 40 mg Senna/Docusate Sodium (Senna Plus) 2 each PO BID PRN PRN Reason: CONSTIPATION Last Admin: 05/29/17 10:18 Dose: 2 each Temazepam (Restoril) 15 mg PO QHS PRN PRN Reason: INSOMNIA Last Admin: 05/28/17 22:08 Dose: 15 mg Tramadol HCl (Ultram) 50 mg PO Q6H PRN PRN Reason: Pain - Mild (1-4) Last Admin: 05/29/17 10:18 Dose: 50 mg AMI Plan - Labs Result Diagrams: 05/29/17 06:05 05/29/17 06:05
[2017-05-29] MEDS: OXYCODONE HCL 5 MG TABLET PO PRN (19:31)
[2017-05-29] MEDS: TEMAZEPAM 15 MG CAPSULE PO PRN (22:35)
[2017-05-29] MEDS: SENNOSIDES/DOCUSATE SODIUM UD CAPSULE PO SCH (22:36)
[2017-05-30] MEDS: HYDROMORPHONE HCL 1 MG/ML CPJ IVP PRN ×5 (02:28→20:19)
[2017-05-30] MEDS: TRAMADOL HCL 50 MG TABLET PO PRN ×2 (05:10→22:07)
[2017-05-30 06:18] LABS: HEMATOCRIT 30.1 % (35.0-47.0); HEMOGLOBIN 9.1 gm/dl (11.6-16.0); MEAN CELL VOLUME 71.8 fl (81-97); MEAN CORPUSCULAR HEMOGLOBIN 21.7 pg (27-33); MEAN CORPUSCULAR HGB CONC 30.2 g/dl (32-36); MEAN PLATELET VOLUME 12.4 fl (7.4-10.4); PLATELET COUNT 254 K/uL (130-400); RED BLOOD COUNT 4.19 M/uL (3.80-5.40); RED CELL DISTRIBUTION WIDTH 17.2 % (11.5-14.5); WHITE BLOOD COUNT W/O DIFF 6.9 K/uL (4.2-12.2)
[2017-05-30 06:24] LABS: ALKALINE PHOSPHATASE 74 U/L (38-126); ALT/SGPT 21 U/L (9-52); ANION GAP 6.9 (7-16); AST/SGOT 15 U/L (14-36); BILIRUBIN,TOTAL 0.23 mg/dL (0.2-1.3); BLOOD UREA NITROGEN 12 mg/dL (7-17); CARBON DIOXIDE 29.1 mmol/L (22-30); CREATININE 0.5 mg/dL (0.52-1.04); EST GLOMERULAR FILTRATION RATE > 60 ml/min; GLUCOSE,RANDOM 127 mg/dL (70-110); TOTAL PROTEIN 6.1 gm/dL (6.3-8.2)
[2017-05-30 07:00] LABS: ERYTHROCYTE SEDIMENTATION RATE 34 mm/hr (0-30)
[2017-05-30] MEDS: PREDNISONE 20 MG TAB PO SCH (08:16)
--- NOTE | 2017-05-30 09:16 | Physician Progress Note ---
Subjective - Date Date of Physician Progress Note: 05/30/17 - Subjective Subjective Comment: 05/30/17- Patient states she feels like she is due for a BM. Did not have any yesterday but the night before had a large amount out. Still passing gas. Having some generalized abdominal cramping today. No nausea/vomiting and says appetite is still good. Eating 80-100% of her meals without issue. Says the tramadol does ok for her mild pain but feels like the diluadid does better for the moderate cramping she is having prior to BM. Objective - Vital Signs Vital Signs: Vital Signs - Last 24 Hrs Temp Pulse Resp BP Pulse Ox 05/30/17 05:00 97.9 F 57 L 18 141/82 96 05/29/17 20:00 99.0 F 65 18 132/78 97 05/29/17 11:52 98.7 F 55 L 16 126/71 96 - General General Appearance: Alert, Oriented x3, Cooperative, Other (cachectic) Limitations: No limitations - Head Head exam: Atraumatic, Normocephalic, Normal inspection - Eye Eye exam: Normal appearance, PERRL - ENT ENT exam: Normal exam Throat exam: Normal inspection. negative: Tonsillar erythema, Tonsillar exudate - Neck Neck exam: Normal inspection, Full ROM. negative: Tenderness - Respiratory Respiratory exam: Normal lung sounds bilaterally. negative: Respiratory distress - Cardiovascular Cardiovascular Exam: Regular rate, Normal rhythm, Normal heart sounds Peripheral Pulses: 2+: Dorsalis Pedis (R), Dorsalis Pedis (L) - GI/Abdominal GI/Abdominal exam: Soft (belly is very soft), Normal bowel sounds, Tenderness ( LLQ ). negative: Diminished bowel sounds, Distended, Rebound, Rigid - Rectal Rectal exam: Deferred - exam: Deferred - Extremities Extremities exam: Normal inspection, Full ROM, Normal capillary refill. negative: Tenderness - Back Back exam: Reports: Normal inspection, Full ROM. Denies: Muscle spasm, Rash noted, Tenderness - Neurological Neurological exam: Alert, Normal gait, Oriented X3, Reflexes normal - Psychiatric Psychiatric exam: Normal affect, Normal mood - Skin Skin exam: Dry, Intact, Normal color, Warm Assessment and Plan - Assessment and Plan (1) Crohn's colitis Current Visit: Yes Status: Acute Qualifiers: Digestive disease complication type: without complication Qualified Code(s) : K50.10 - Crohn's disease of large intestine without complications Base Code: K50.10 - CROHN'S DISEASE OF LARGE INTESTINE WITHOUT COMPLICATIONS Comment: 05/30/17- continues to have some abdominal cramping prior to BM but overall, pain improved from admission. CRP down from 22 at admission to 2.4 and ESR down to 34 today. HGB stable at 9.1 Patient tolerated first remicaid infusion well. spoke with Dr. Up who recommends continued admission for monitoring until next remicaid infusion due to severity of patient's crohn's flare. We also discussed the possibility of trying to get her set up for an outpatient infusion, however, were unable to obtain prior auth to get her scheduled at the infusion clinic, nor do they have available appointments next week. -repeat remicaid infusion next wednesday -continue diet as tolerating - pain management with Dilaudid for severe pain and tramadol 50mg po q6H for mild pain. - ZOfran for nausea -senna 2 tablets po bid for constipation -encouraged ambulation -continue on oral prednisone 40mg daily. Dr. Up would like her on this until she sees her as outpatient. would like patient sent home with prednisnoe 10mg # 120 tablets 1 refill and she will start patient on the taper as outpatient. -repeat labs qam and continue to monitor lytes, crp, and albumin (2) DVT prophylaxis Current Visit: Yes Status: Acute Base Code: [id number] - Comment: 05/30/17- Lovenox 40mg QD, nursing to encourage frequent ambulation (3) Full code status Current Visit: Yes Status: Acute Base Code: Z78.9 - OTHER SPECIFIED HEALTH STATUS Comment: 05/30/17- will remain full code during this hospitalization Results - Labs Result Diagrams: 05/30/17 05:50 05/30/17 05:50 Labs Last 24 Hours: Laboratory Results - last 24 hr 05/30/17 05/30/17 05:50 05:50 WBC 6.9 RBC 4.19 Hgb 9.1 L Hct 30.1 L MCV 71.8 L MCH 21.7 L MCHC 30.2 L RDW 17.2 H Plt Count 254 MPV 12.4 H Neutrophils % 74.0 Band Neutrophils % 0.0 Eosinophils % Not Reportable Basophils % Not Reportable Lymphocytes 19.0 Monocytes 7.0 Basophils 0.0 ESR 34 H Eosinophil Count 0.0 Sodium 140 Potassium 3.7 Chloride 104 Carbon Dioxide 29.1 Anion Gap 6.9 L BUN 12 Creatinine 0.5 L Estimated GFR > 60 Random Glucose 127 H Calcium 8.7 Total Bilirubin 0.23 AST 15 ALT 21 Alkaline Phosphatase 74 Total Protein 6.1 L Albumin 3.0 L Globulin 3.1 Albumin/Globulin Ratio 1.0 L DVT/PE Assessment - Risk for VTE Risk for VTE: No Risk Level: Low Risk Assessment Date: 05/23/17 Risk Assessment Time: 09:00 VTE Orders Placed or Will Be Placed: Yes - Active Medicaitons Current Medications: Current Medications Acetaminophen (Tylenol 500mg Tab) 1,000 mg PO Q6H PRN PRN Reason: FEVER Last Admin: 05/28/17 20:40 Dose: 500 mg Enoxaparin Sodium (Lovenox) 40 mg SQ DAILY [facility] Last Admin: 05/29/17 10:07 Dose: 40 mg Hydromorphone HCl (Dilaudid) 1 mg IVP Q4H PRN PRN Reason: Pain - Severe (8-10) Last Admin: 05/30/17 07:59 Dose: 1 mg Loratadine (Claritin) 10 mg PO DAILY PRN PRN Reason: URTICARIA Last Admin: 05/25/17 11:21 Dose: 10 mg Ondansetron HCl (Zofran) 4 mg IVP Q4H PRN PRN Reason: NAUSEA Last Admin: 05/24/17 04:40 Dose: 4 mg Oxycodone HCl (Oxy Ir) 7.5 mg PO Q4H PRN PRN Reason: Pain - Moderate (5-7) Last Admin: 05/29/17 19:31 Dose: 7.5 mg Patient Own Med: Budesonide (Uceris) 9 Mg 1 each PO DAILY [facility] Last Admin: 05/29/17 10:09 Dose: 1 each Potassium Chloride (Klor-Con) 20 meq PO DAILY [facility] Last Admin: 05/29/17 10:07 Dose: 20 meq Prednisone (Prednisone 20mg) 40 mg PO DAILYWM [facility] Last Admin: 05/30/17 08:16 Dose: 40 mg Senna/Docusate Sodium (Senna Plus) 2 each PO BID [facility] Last Admin: 05/29/17 22:36 Dose: 2 each Temazepam (Restoril) 15 mg PO QHS PRN PRN Reason: INSOMNIA Last Admin: 05/29/17 22:35 Dose: 15 mg Tramadol HCl (Ultram) 50 mg PO Q6H PRN PRN Reason: Pain - Mild (1-4) Last Admin: 05/30/17 05:10 Dose: 50 mg AMI Plan - Labs Result Diagrams: 05/30/17 05:50 05/30/17 05:50
[2017-05-30] MEDS: POTASSIUM CHLORIDE 20 MEQ TABLET PO SCH (11:50)
[2017-05-30] MEDS: ENOXAPARIN 40 MG/0.4 ML SYR SQ SCH (11:51)
[2017-05-30] MEDS: SENNOSIDES/DOCUSATE SODIUM UD CAPSULE PO SCH ×2 (11:51→22:05)
[2017-05-30] MEDS: BUDESONIDE 9 MG PO SCH (11:52)
[2017-05-30] MEDS: TEMAZEPAM 15 MG CAPSULE PO PRN (22:05)
[2017-05-31] MEDS: HYDROMORPHONE HCL 1 MG/ML CPJ IVP PRN ×5 (02:12→22:15)
[2017-05-31] MEDS: TRAMADOL HCL 50 MG TABLET PO PRN (03:53)
[2017-05-31 06:18] LABS: HEMATOCRIT 29.5 % (35.0-47.0); HEMOGLOBIN 8.7 gm/dl (11.6-16.0); MEAN CELL VOLUME 72.8 fl (81-97); MEAN CORPUSCULAR HGB CONC 29.5 g/dl (32-36); MEAN PLATELET VOLUME 11.6 fl (7.4-10.4); PLATELET COUNT 259 K/uL (130-400); RED BLOOD COUNT 4.05 M/uL (3.80-5.40); RED CELL DISTRIBUTION WIDTH 17.3 % (11.5-14.5); WHITE BLOOD COUNT W/O DIFF 9.6 K/uL (4.2-12.2)
[2017-05-31 06:21] LABS: MEAN CORPUSCULAR HEMOGLOBIN 21.4 pg (27-33)
[2017-05-31 06:32] LABS: HYPOCHROMIA 1+; PLATELET ESTIMATE NORMAL (NORMAL)
[2017-05-31 06:34] LABS: ALBUMIN 3.2 gm/dL (3.5-5.0); ALKALINE PHOSPHATASE 67 U/L (38-126); ALT/SGPT 26 U/L (9-52); ANION GAP 7.4 (7-16); AST/SGOT 21 U/L (14-36); BILIRUBIN,TOTAL 0.48 mg/dL (0.2-1.3); BLOOD UREA NITROGEN 15 mg/dL (7-17); CARBON DIOXIDE 29.6 mmol/L (22-30); CREATININE 0.6 mg/dL (0.52-1.04); EST GLOMERULAR FILTRATION RATE > 60 ml/min; GLUCOSE,RANDOM 109 mg/dL (70-110); TOTAL PROTEIN 6.5 gm/dL (6.3-8.2)
[2017-05-31 07:04] LABS: ERYTHROCYTE SEDIMENTATION RATE 28 mm/hr (0-30)
--- NOTE | 2017-05-31 07:10 | Physician Progress Note ---
Subjective - Date Date of Physician Progress Note: 05/31/17 - Subjective Subjective Comment: 05/31/17- Patient continues to do well. Had a large BM last night that was formed. Scant blood. Says her abdominal pain has been at baseline today, much better from time of admission. Her appetite continues to be good and she has not had any nausea/vomiting with eating. she does reports some itching and irritation of the inguinal area Objective - Vital Signs Vital Signs: Vital Signs - Last 24 Hrs Temp Pulse Resp BP Pulse Ox 05/31/17 06:00 98.6 F 49 L 16 117/67 97 05/30/17 22:00 98.1 F 52 L 16 127/70 96 05/30/17 12:46 98.2 F 52 L 14 131/73 93 L 05/30/17 09:00 52 L 14 - General General Appearance: Alert, Oriented x3, Cooperative, Other (cachectic) Limitations: No limitations - Head Head exam: Atraumatic, Normocephalic, Normal inspection - Eye Eye exam: Normal appearance, PERRL - ENT ENT exam: Normal exam Throat exam: Normal inspection. negative: Tonsillar erythema, Tonsillar exudate - Neck Neck exam: Normal inspection, Full ROM. negative: Tenderness - Respiratory Respiratory exam: Normal lung sounds bilaterally. negative: Respiratory distress - Cardiovascular Cardiovascular Exam: Regular rate, Normal rhythm, Normal heart sounds Peripheral Pulses: 2+: Dorsalis Pedis (R), Dorsalis Pedis (L) - GI/Abdominal GI/Abdominal exam: Soft (belly is very soft), Normal bowel sounds, Tenderness ( LLQ ). negative: Diminished bowel sounds, Distended, Rebound, Rigid - Rectal Rectal exam: Deferred - exam: Deferred - Extremities Extremities exam: Normal inspection, Full ROM, Normal capillary refill. negative: Tenderness - Back Back exam: Reports: Normal inspection, Full ROM. Denies: Muscle spasm, Rash noted, Tenderness - Neurological Neurological exam: Alert, Normal gait, Oriented X3, Reflexes normal - Psychiatric Psychiatric exam: Normal affect, Normal mood - Skin Skin exam: Dry, Intact, Normal color, Warm Assessment and Plan - Assessment and Plan (1) Crohn's colitis Current Visit: Yes Status: Acute Qualifiers: Digestive disease complication type: without complication Qualified Code(s) : K50.10 - Crohn's disease of large intestine without complications Base Code: K50.10 - CROHN'S DISEASE OF LARGE INTESTINE WITHOUT COMPLICATIONS Comment: 05/31/17- continues to have some abdominal cramping prior to BM but overall, pain improved from admission. CRP down from 22 at admission to 1.7 and ESR down to 28 today. HGB stable at 8.7 Patient tolerated first remicaid infusion well. spoke with Dr. Up who recommends continued admission for monitoring until next remicaid infusion due to severity of patient's crohn's flare. We also discussed the possibility of trying to get her set up for an outpatient infusion, however, were unable to obtain prior auth to get her scheduled at the infusion clinic, nor do they have available appointments next week. -repeat remicaid infusion 06/02/17 -continue diet as tolerating - pain management with Dilaudid for severe pain and tramadol 50mg po q6H for mild pain. - ZOfran for nausea -senna 2 tablets po bid for constipation -encouraged ambulation -continue on oral prednisone 40mg daily. Dr. Up would like her on this until she sees her as outpatient. would like patient sent home with prednisnoe 10mg # 120 tablets 1 refill and she will start patient on the taper as outpatient. -repeat labs qam and continue to monitor lytes, crp, and albumin (2) DVT prophylaxis Current Visit: Yes Status: Acute Base Code: [id number] - Comment: 05/31/17- Lovenox 40mg QD, nursing to encourage frequent ambulation (3) Full code status Current Visit: Yes Status: Acute Base Code: Z78.9 - OTHER SPECIFIED HEALTH STATUS Comment: 05/31/17- will remain full code during this hospitalization Results - Labs Result Diagrams: 05/31/17 06:05 05/31/17 06:05 Labs Last 24 Hours: Laboratory Results - last 24 hr 05/30/17 05/31/17 05/31/17 06:00 06:05 06:05 WBC 9.6 RBC 4.05 Hgb 8.7 L Hct 29.5 L MCV 72.8 L MCH 21.4 L MCHC 29.5 L RDW 17.3 H Plt Count 259 MPV 11.6 H Neutrophils % 63.0 Eosinophils % Not Reportable Basophils % Not Reportable Lymphocytes 29.0 Monocytes 8.0 Platelet Estimate Normal Hypochromasia 1+ ESR 28 Sodium 140 Potassium 3.3 L Chloride 103 Carbon Dioxide 29.6 Anion Gap 7.4 BUN 15 Creatinine 0.6 Estimated GFR > 60 Random Glucose 109 Calcium 8.5 Total Bilirubin 0.48 AST 21 ALT 26 Alkaline Phosphatase 67 C-Reactive Protein 2.4 H Total Protein 6.5 Albumin 3.2 L Globulin 3.3 Albumin/Globulin Ratio 1.0 L 05/31/17 06:10 WBC RBC Hgb Hct MCV MCH MCHC RDW Plt Count MPV Neutrophils % Eosinophils % Basophils % Lymphocytes Monocytes Platelet Estimate Hypochromasia ESR Sodium Potassium Chloride Carbon Dioxide Anion Gap BUN Creatinine Estimated GFR Random Glucose Calcium Total Bilirubin AST ALT Alkaline Phosphatase C-Reactive Protein 1.7 H Total Protein Albumin Globulin Albumin/Globulin Ratio DVT/PE Assessment - Risk for VTE Risk for VTE: No Risk Level: Low Risk Assessment Date: 05/23/17 Risk Assessment Time: 09:00 VTE Orders Placed or Will Be Placed: Yes - Active Medicaitons Current Medications: Current Medications Acetaminophen (Tylenol 500mg Tab) 1,000 mg PO Q6H PRN PRN Reason: FEVER Last Admin: 05/28/17 20:40 Dose: 500 mg Enoxaparin Sodium (Lovenox) 40 mg SQ DAILY [facility] Last Admin: 05/30/17 11:51 Dose: 40 mg Hydromorphone HCl (Dilaudid) 1 mg IVP Q4H PRN PRN Reason: Pain - Severe (8-10) Last Admin: 05/31/17 06:14 Dose: 1 mg Loratadine (Claritin) 10 mg PO DAILY PRN PRN Reason: URTICARIA Last Admin: 05/25/17 11:21 Dose: 10 mg Ondansetron HCl (Zofran) 4 mg IVP Q4H PRN PRN Reason: NAUSEA Last Admin: 05/24/17 04:40 Dose: 4 mg Oxycodone HCl (Oxy Ir) 7.5 mg PO Q4H PRN PRN Reason: Pain - Moderate (5-7) Last Admin: 05/29/17 19:31 Dose: 7.5 mg Patient Own Med: Budesonide (Uceris) 9 Mg 1 each PO DAILY [facility] Last Admin: 05/30/17 11:52 Dose: 1 each Potassium Chloride (Klor-Con) 20 meq PO DAILY [facility] Last Admin: 05/30/17 11:50 Dose: 20 meq Prednisone (Prednisone 20mg) 40 mg PO DAILYWM [facility] Last Admin: 05/30/17 08:16 Dose: 40 mg Senna/Docusate Sodium (Senna Plus) 2 each PO BID [facility] Last Admin: 05/30/17 22:05 Dose: 2 each Temazepam (Restoril) 15 mg PO QHS PRN PRN Reason: INSOMNIA Last Admin: 05/30/17 22:05 Dose: 15 mg Tramadol HCl (Ultram) 50 mg PO Q6H PRN PRN Reason: Pain - Mild (1-4) Last Admin: 05/31/17 03:53 Dose: 50 mg AMI Plan - Labs Result Diagrams: 05/31/17 06:05 05/31/17 06:05
[2017-05-31] MEDS: POTASSIUM CHLORIDE 20 MEQ TABLET PO SCH (10:19)
[2017-05-31] MEDS: SENNOSIDES/DOCUSATE SODIUM UD CAPSULE PO SCH ×2 (10:19→22:19)
[2017-05-31] MEDS: PREDNISONE 20 MG TAB PO SCH (10:21)
[2017-05-31] MEDS: ENOXAPARIN 40 MG/0.4 ML SYR SQ SCH (10:22)
[2017-05-31] MEDS: BUDESONIDE 9 MG PO SCH (10:22)
[2017-05-31] MEDS: 0.9 % SODIUM CHLORIDE 10ML SYR IVP SCH ×2 (10:34→18:03)
[2017-05-31] MEDS ORDERED: NYSTATIN 15 GM TUBE TOP PRN (11:49)
[2017-05-31] MEDS ORDERED: LIDOCAINE VISC 2% 200MG/10ML UD MM PRN (15:20)
[2017-05-31] MEDS ORDERED: DIPHENHYDRAMINE ELIXIR 25MG/10ML UD PO PRN (15:20)
[2017-05-31] MEDS: TEMAZEPAM 15 MG CAPSULE PO PRN (22:18)
[2017-06-01] MEDS: TRAMADOL HCL 50 MG TABLET PO PRN ×2 (01:13→22:45)
[2017-06-01] MEDS: TEMAZEPAM 15 MG CAPSULE PO PRN ×2 (01:16→22:44)
[2017-06-01] MEDS: 0.9 % SODIUM CHLORIDE 10ML SYR IVP SCH ×3 (05:13→16:42)
[2017-06-01] MEDS: HYDROMORPHONE HCL 1 MG/ML CPJ IVP PRN ×4 (05:13→21:11)
[2017-06-01 06:08] LABS: HEMATOCRIT 30.1 % (35.0-47.0); HEMOGLOBIN 8.9 gm/dl (11.6-16.0); MEAN CELL VOLUME 73.2 fl (81-97); MEAN CORPUSCULAR HGB CONC 29.6 g/dl (32-36); MEAN PLATELET VOLUME 12.6 fl (7.4-10.4); PLATELET COUNT 266 K/uL (130-400); RED BLOOD COUNT 4.11 M/uL (3.80-5.40); WHITE BLOOD COUNT W/O DIFF 10.5 K/uL (4.2-12.2)
[2017-06-01 06:10] LABS: MEAN CORPUSCULAR HEMOGLOBIN 21.6 pg (27-33)
[2017-06-01 06:17] LABS: ALBUMIN 2.9 gm/dL (3.5-5.0); ALKALINE PHOSPHATASE 71 U/L (38-126); ALT/SGPT 34 U/L (9-52); ANION GAP 7.5 (7-16); AST/SGOT 16 U/L (14-36); BILIRUBIN,TOTAL 0.55 mg/dL (0.2-1.3); BLOOD UREA NITROGEN 17 mg/dL (7-17); CARBON DIOXIDE 29.5 mmol/L (22-30); CREATININE 0.6 mg/dL (0.52-1.04); EST GLOMERULAR FILTRATION RATE > 60 ml/min; GLUCOSE,RANDOM 110 mg/dL (70-110); TOTAL PROTEIN 5.9 gm/dL (6.3-8.2)
[2017-06-01 06:21] LABS: PLATELET ESTIMATE NORMAL (NORMAL)
[2017-06-01 06:42] LABS: ERYTHROCYTE SEDIMENTATION RATE 28 mm/hr (0-30)
[2017-06-01] MEDS: OXYCODONE HCL 5 MG TABLET PO PRN (07:33)
[2017-06-01] MEDS: PREDNISONE 20 MG TAB PO SCH (08:40)
[2017-06-01] MEDS: POTASSIUM CHLORIDE 20 MEQ TABLET PO SCH (11:13)
[2017-06-01] MEDS: ENOXAPARIN 40 MG/0.4 ML SYR SQ SCH (11:13)
[2017-06-01] MEDS: LORATADINE 10 MG TABLET PO PRN (11:13)
[2017-06-01] MEDS: BUDESONIDE 9 MG PO SCH (11:18)
[2017-06-01] MEDS: SENNOSIDES/DOCUSATE SODIUM UD CAPSULE PO SCH ×2 (11:18→22:45)
--- NOTE | 2017-06-01 11:58 | Physician Progress Note ---
Subjective - Date Date of Physician Progress Note: 06/01/17 - Subjective Subjective Comment: 06/01/17- Patient continues to do well. She is tolerating full diet without nausea , vomiting or increased abdominal pain. She continues to pass formed as well as loose stool daily. She admits to abdominal cramping and pain with bowel movement but states she is at her baseline for this pain. Denies blood in her stool. Objective - Vital Signs Vital Signs: Vital Signs - Last 24 Hrs Temp Pulse Resp BP Pulse Ox 06/01/17 08:56 12 06/01/17 08:33 98.1 F 57 L 16 118/56 100 06/01/17 01:04 98.7 F 05/31/17 21:46 98.9 F 05/31/17 20:04 98.7 F 64 18 115/63 96 05/31/17 14:00 98.2 F 63 16 122/70 96 - General General Appearance: Alert, Oriented x3, Cooperative, Other (cachectic) Limitations: No limitations - Head Head exam: Atraumatic, Normocephalic, Normal inspection - Eye Eye exam: Normal appearance, PERRL - ENT ENT exam: Normal exam Throat exam: Normal inspection. negative: Tonsillar erythema, Tonsillar exudate - Neck Neck exam: Normal inspection, Full ROM. negative: Tenderness - Respiratory Respiratory exam: Normal lung sounds bilaterally. negative: Respiratory distress - Cardiovascular Cardiovascular Exam: Regular rate, Normal rhythm, Normal heart sounds Peripheral Pulses: 2+: Dorsalis Pedis (R), Dorsalis Pedis (L) - GI/Abdominal GI/Abdominal exam: Soft (belly is very soft), Normal bowel sounds, Tenderness ( LLQ ). negative: Diminished bowel sounds, Distended, Rebound, Rigid - Rectal Rectal exam: Deferred - exam: Deferred - Extremities Extremities exam: Normal inspection, Full ROM, Normal capillary refill. negative: Tenderness - Back Back exam: Reports: Normal inspection, Full ROM. Denies: Muscle spasm, Rash noted, Tenderness - Neurological Neurological exam: Alert, Normal gait, Oriented X3, Reflexes normal - Psychiatric Psychiatric exam: Normal affect, Normal mood - Skin Skin exam: Dry, Intact, Normal color, Warm Assessment and Plan - Assessment and Plan (1) Crohn's colitis Current Visit: Yes Status: Acute Qualifiers: Digestive disease complication type: without complication Qualified Code(s) : K50.10 - Crohn's disease of large intestine without complications Base Code: K50.10 - CROHN'S DISEASE OF LARGE INTESTINE WITHOUT COMPLICATIONS Comment: 06/01/17- continues to have some abdominal cramping prior to BM but overall, pain improved from admission. CRP down from 22 at admission to 1.8 and ESR down to 28 today. HGB stable at 8.9. Patient tolerated first remicaid infusion well. spoke with Dr. Up who recommends continued admission for monitoring until next remicaid infusion due to severity of patient's crohn's flare. We also discussed the possibility of trying to get her set up for an outpatient infusion, however, were unable to obtain prior auth to get her scheduled at the infusion clinic, nor do they have available appointments next week. -repeat remicaid infusion 06/02/17 -continue diet as tolerating - pain management with Dilaudid for severe pain and tramadol 50mg po q6H for mild pain. - ZOfran for nausea -senna 2 tablets po bid for constipation -encouraged ambulation -continue on oral prednisone 40mg daily. Dr. Up would like her on this until she sees her as outpatient. would like patient sent home with prednisnoe 10mg # 120 tablets 1 refill and she will start patient on the taper as outpatient. -repeat labs qam and continue to monitor lytes, crp, and albumin -plan to discharge 06/03/17 after overnight monitoring following remicaid infusion on 06/02/17 (2) DVT prophylaxis Current Visit: Yes Status: Acute Base Code: [id number] - Comment: 06/01/17- Lovenox 40mg QD, nursing to encourage frequent ambulation (3) Full code status Current Visit: Yes Status: Acute Base Code: Z78.9 - OTHER SPECIFIED HEALTH STATUS Comment: 06/01/17- will remain full code during this hospitalization Results - Labs Result Diagrams: 06/01/17 05:50 06/01/17 05:50 Labs Last 24 Hours: Laboratory Results - last 24 hr 06/01/17 06/01/17 06/01/17 05:45 05:50 05:50 WBC 10.5 RBC 4.11 Hgb 8.9 L Hct 30.1 L MCV 73.2 L MCH 21.6 L MCHC 29.6 L RDW 18.0 H Plt Count 266 MPV 12.6 H Neutrophils % 72.0 Eosinophils % Not Reportable Basophils % Not Reportable Lymphocytes 18.0 Monocytes 10.0 H Platelet Estimate Normal RBC Morphology Normal ESR 28 Sodium 140 Potassium 3.5 Chloride 103 Carbon Dioxide 29.5 Anion Gap 7.5 BUN 17 Creatinine 0.6 Estimated GFR > 60 Random Glucose 110 Calcium 8.7 Total Bilirubin 0.55 AST 16 ALT 34 Alkaline Phosphatase 71 C-Reactive Protein 1.8 H Total Protein 5.9 L Albumin 2.9 L Globulin 3.0 Albumin/Globulin Ratio 1.0 L DVT/PE Assessment - Risk for VTE Risk for VTE: No Risk Level: Low Risk Assessment Date: 05/23/17 Risk Assessment Time: 09:00 VTE Orders Placed or Will Be Placed: Yes - Active Medicaitons Current Medications: Current Medications Acetaminophen (Tylenol 500mg Tab) 1,000 mg PO Q6H PRN PRN Reason: FEVER Last Admin: 05/28/17 20:40 Dose: 500 mg Diphenhydramine HCl (Benadryl Elixir) 12.5 mg PO Q6H PRN PRN Reason: sore throat Last Admin: 05/31/17 15:39 Dose: 12.5 mg Enoxaparin Sodium (Lovenox) 40 mg SQ DAILY KELLI Last Admin: 06/01/17 11:13 Dose: 40 mg Hydromorphone HCl (Dilaudid) 1 mg IVP Q4H PRN PRN Reason: Pain - Severe (8-10) Last Admin: 06/01/17 11:18 Dose: 1 mg Lidocaine HCl () 200 mg MM Q6HR PRN PRN Reason: sore throat Last Admin: 05/31/17 15:38 Dose: 200 mg Loratadine (Claritin) 10 mg PO DAILY PRN PRN Reason: URTICARIA Last Admin: 06/01/17 11:13 Dose: 10 mg Nystatin () 15 gm TOP ASDIR PRN PRN Reason: candidal yeast Ondansetron HCl (Zofran) 4 mg IVP Q4H PRN PRN Reason: NAUSEA Last Admin: 05/24/17 04:40 Dose: 4 mg Oxycodone HCl (Oxy Ir) 7.5 mg PO Q4H PRN PRN Reason: Pain - Moderate (5-7) Last Admin: 06/01/17 07:33 Dose: 7.5 mg Patient Own Med: Budesonide (Uceris) 9 Mg 1 each PO DAILY [facility] Last Admin: 06/01/17 11:18 Dose: 1 each Potassium Chloride (Klor-Con) 20 meq PO DAILY KELLI Last Admin: 06/01/17 11:13 Dose: 20 meq Prednisone (Prednisone 20mg) 40 mg PO DAILYWM [facility] Last Admin: 06/01/17 08:40 Dose: 40 mg Senna/Docusate Sodium (Senna Plus) 2 each PO BID [facility] Last Admin: 06/01/17 11:18 Dose: Not Given Sodium Chloride () 10 ml IVP Q12H KELLI Last Admin: 06/01/17 11:19 Dose: 10 ml Temazepam (Restoril) 15 mg PO QHS PRN PRN Reason: INSOMNIA Last Admin: 06/01/17 01:16 Dose: 15 mg Tramadol HCl (Ultram) 50 mg PO Q6H PRN PRN Reason: Pain - Mild (1-4) Last Admin: 06/01/17 01:13 Dose: 50 mg AMI Plan - Labs Result Diagrams: 06/01/17 05:50 06/01/17 05:50
[2017-06-02] MEDS: 0.9 % SODIUM CHLORIDE 10ML SYR IVP SCH ×3 (00:01→14:36)
[2017-06-02] MEDS: HYDROMORPHONE HCL 1 MG/ML CPJ IVP PRN ×5 (01:06→19:55)
[2017-06-02] MEDS: OXYCODONE HCL 5 MG TABLET PO PRN ×2 (03:24→09:40)
[2017-06-02] MEDS: POTASSIUM CHLORIDE 20 MEQ TABLET PO SCH (09:32)
[2017-06-02] MEDS: SENNOSIDES/DOCUSATE SODIUM UD CAPSULE PO SCH ×2 (09:32→22:33)
[2017-06-02] MEDS: ENOXAPARIN 40 MG/0.4 ML SYR SQ SCH (09:32)
[2017-06-02] MEDS: BUDESONIDE 9 MG PO SCH (09:33)
[2017-06-02] MEDS: PREDNISONE 20 MG TAB PO SCH (09:35)
[2017-06-02] MEDS ORDERED: INFLIXIMAB IV ONE (11:15)
[2017-06-02] MEDS ORDERED: SODIUM CHLORIDE 0.9% IV ONE (11:15)
[2017-06-02] MEDS: TEMAZEPAM 15 MG CAPSULE PO PRN (22:32)
[2017-06-02] MEDS: TRAMADOL HCL 50 MG TABLET PO PRN (22:33)
[2017-06-03] MEDS: 0.9 % SODIUM CHLORIDE 10ML SYR IVP SCH (02:10)
[2017-06-03] MEDS: OXYCODONE HCL 5 MG TABLET PO PRN (02:10)
[2017-06-03] MEDS: TRAMADOL HCL 50 MG TABLET PO PRN (06:47)
--- NOTE | 2017-06-03 07:58 | Discharge Note ---
VTE H&P Assessment - Risk for VTE Risk for VTE: Yes Risk Level: Low Risk Assessment Date: 05/23/17 Risk Assessment Time: 09:00 VTE Orders Placed or Will Be Placed: Yes Discharge Medications - Discharge Medications Prescriptions: Temazepam [Restoril] 15 mg PO QHS PRN #30 cap PRN Reason: Insomnia Prednisone [Prednisone 10Mg] 40 mg PO DAILY #120 tab Tramadol HCl [Ultram] 50 mg PO Q6H PRN #30 PRN Reason: Pain - Mild (1-4) Home Medications: Ambulatory Orders Budesonide [Uceris] 9 mg PO QAM 05/22/17 [Last Taken 05/22/17] Sennosides [Senna] 8.6 mg PO BID PRN 05/23/17 [Last Taken Unknown] Acetaminophen [Tylenol 500Mg Tab] 1,000 mg PO Q6H PRN 06/03/17 [Last Taken Unknown] Loratadine [Claritin] 10 mg PO DAILY PRN 06/03/17 [Last Taken Unknown] Nystatin 15 gm TOP ASDIR PRN tube 06/03/17 [Last Taken Unknown] Prednisone [Prednisone 10Mg] 40 mg PO DAILY #120 tab 06/03/17 [Last Taken Unknown] Temazepam [Restoril] 15 mg PO QHS PRN #30 cap 06/03/17 [Last Taken Unknown] Tramadol HCl [Ultram] 50 mg PO Q6H PRN #30 06/03/17 [Last Taken Unknown] Discharge Note - Date Date of Discharge Note: 06/03/17 Disposition: Home, Self-Care Condition: (2) Stable Additional Instructions: follow up with Dr. Up in 5-10 days Take prednisone 10 mg pills 4 pills per day for 5 days than decrease to 3 pills aday and have Dr. Up decide on titrating off the prednisone follow up with Dr. Rodriguez in 2 weeks use tramadol 50mg for severe pain and use tylenol for mild to moderate pain schedule outpatient consult with Dr. Napoles for possible surgical procedure for her crohn's disease. Prescriptions: Temazepam [Restoril] 15 mg PO QHS PRN #30 cap PRN Reason: Insomnia Prednisone [Prednisone 10Mg] 40 mg PO DAILY #120 tab Tramadol HCl [Ultram] 50 mg PO Q6H PRN #30 PRN Reason: Pain - Mild (1-4) Referrals: ARIELLA RODRIGUEZ M.D. [Primary Care Provider] - Forms: Patient Portal Access Activity at Discharge: Increase Activity as Tolerated
[2017-06-03] MEDS: PREDNISONE 20 MG TAB PO SCH (08:00)
[2017-06-03 08:34] LABS: HEMATOCRIT 31.5 % (35.0-47.0); HEMOGLOBIN 9.3 gm/dl (11.6-16.0); MEAN CELL VOLUME 73.8 fl (81-97); MEAN CORPUSCULAR HGB CONC 29.5 g/dl (32-36); MEAN PLATELET VOLUME 12.1 fl (7.4-10.4); PLATELET COUNT 261 K/uL (130-400); RED BLOOD COUNT 4.27 M/uL (3.80-5.40); RED CELL DISTRIBUTION WIDTH 19.1 % (11.5-14.5); WHITE BLOOD COUNT W/O DIFF 8.7 K/uL (4.2-12.2)
[2017-06-03 08:41] LABS: MEAN CORPUSCULAR HEMOGLOBIN 21.7 pg (27-33)
[2017-06-03 08:47] LABS: ANION GAP 8.5 (7-16); BLOOD UREA NITROGEN 18 mg/dL (7-17); CARBON DIOXIDE 31.5 mmol/L (22-30); CREATININE 0.6 mg/dL (0.52-1.04); EST GLOMERULAR FILTRATION RATE > 60 ml/min; GLUCOSE,RANDOM 89 mg/dL (70-110); HYPOCHROMIA 1+; PLATELET ESTIMATE NORMAL (NORMAL)
[2017-06-03 09:05] LABS: C-REACTIVE PROTEIN 1.2 mg/dL (0.0-0.9)
[2017-06-03] MEDS: ENOXAPARIN 40 MG/0.4 ML SYR SQ SCH (09:47)
[2017-06-03] MEDS: POTASSIUM CHLORIDE 20 MEQ TABLET PO SCH (09:47)
--- NOTE | 2017-06-09 08:34 | Discharge Summary ---
DISCHARGE DIAGNOSES: 1. Acute exacerbation of Crohn disease. 2. Malnutrition, resolving. ATTENDING PHYSICIAN: Sukhdev Menendez DO, covering for Dr. Joyner REASON FOR HOSPITALIZATION: This is a patient with a history of nausea, poor appetite, increased loose stools, abdominal pain, 50-pound weight loss, admitted for a Crohn's flare. She has had Crohn disease for 30 years, has flares on and off. She sees a GI doctor, Dr. Chandra and Dr. Up. She was evaluated in the emergency department and found to be anemic. She was admitted to the hospital for IV steroids and further care. She has been in our hospital since 05/22/2017 under the care of Dr. Joyner with Leydi Carpio. I assumed care on 06/02/2017. She was doing much better. She got her second dose of Remicade IV. First dose was on 05/25/2017 and second dose was on 06/02/2017. Her abdominal pain is tolerable she is on oral pain medications. She has a soft abdomen, no rebound or rigidity. SIGNIFICANT FINDINGS FROM TESTING: The abdominal x-rays revealed no acute pulmonary disease, non-obstructed bowel gas pattern, no evidence of free air. LABORATORY DATA: She is currently getting her last set of labs now but yesterday's lab showed a white count of 10,500, hemoglobin 8.9, platelet count 266,000, sed rate 28. Potassium 3.5. CRP was 1.8. Liver enzymes were normal. THERAPY PROVIDED: She was given initially IV Solu-Medrol, switched over to oral prednisone at 40 mg a day and given Remicade on 05/25/2017 and 06/02/2017, 550 mg IV. She was given pain control with Dilaudid, switched over to tramadol and OxyIR the last day but at discharge will be going home on tramadol for severe pain, Tylenol for mild pain. HOSPITAL COURSE: She has gradually improved. CONDITION ON DISCHARGE: Stable and improved. DISCHARGE INSTRUCTIONS: Follow up with Dr. Up in 5-10 days. Follow up with Dr. Nava in 2 weeks. Tramadol 50 mg q.6 h. p.r.n. severe pain, Tylenol 1000 mg q.6 h. p.r.n. [id number] pain not to exceed 4 g per 24 hours, prednisone 40 mg a day - these will be 10 mg pills, 4 pills a day for 5 days and then drop down to 3 mg a day for [address] Up will then advise how to taper further. Continue the home medication of senna 1 pill twice a day and Uceris 9 mg daily. Also, will set up an outpatient appointment with Dr. Arthur, the surgeon, to consult for possible surgical options for the Crohn disease. I guess there was some concern that she has a hard time getting stool through one spot and it causes her not to eat. Currently she seems to be having only one stool, actually 2 stools a day. Last bowel movement was on 06/01/2017. Her weight is 127 pounds on discharge. She is also to use as needed Claritin p.r.n., nystatin cream in the areas that are inflamed on her skin, Restoril 15 mg q.h.s. for p.r.n. insomnia. CC: Dr. Friar Dr. [facility]
== END 2017-06-03 11:00 | disposition home or self-care (01) | DRG 387 ==
LOC: ER 18:02 → MEDSURG 22:50
PROVIDERS: ADMIT Family Medicine; ATTEND Emergency Medicine
DX: K50.90 Crohn's disease, unspecified, without complications (principal); E63.9 Nutritional deficiency, unspecified; D50.9 Iron deficiency anemia, unspecified
CPT/HCPCS: 74022; 80048; 80053; 80076; 81003; 83690; 83735; 84100; 84450; 84460; 84703; 85025; 85027; 85651; 86140; 96361; 96374; 96375; 97165; 99223; 99233; 99239; 99285; J1170; J1650; J2405; J2930; J3480; J7030; J7050; J7512